=== PATIENT | male | born 1980 | race Caucasian/White ===

== ENCOUNTER 2018-10-15 14:30 | Emergency (ER) | payer MEDICAID ==
[~2018-10-15] VITALS: Ht 172.7 cm; Wt 63.5 kg
[2018-10-15 14:33] VITALS: BP 123/74
== END 2018-10-15 16:51 | disposition home or self-care (01) ==
LOC: ER 14:30
DX: S70.361A Insect bite (nonvenomous), right thigh, initial encounter (principal); S30.860A Insect bite (nonvenomous) of lower back and pelvis, initial encounter; W57.XXXA Bitten or stung by nonvenomous insect and other nonvenomous arthropods, initial encounter; Y93.89 Activity, other specified; Y99.8 Other external cause status; Y92.89 Other specified places as the place of occurrence of the external cause

== ENCOUNTER 2021-01-12 13:25 | Inpatient (IN) | payer MEDICAID ==
[~2021-01-12] VITALS: Ht 175.3 cm; Wt 60.8 kg
[2021-01-12 14:12] LABS: Basophils # (auto) 0 10 ^3/uL (0-0.2); Basophils % (auto) 0.3 % (0.0-2.0); Eosinophils # (auto) 0 10 ^3/uL (0-0.8); Eosinophils % (auto) 0.2 % (0.0-7.0); Hematocrit 47.2 % (41.0-53.0); Hemoglobin 16.3 g/dL (13.5-17.5); Lymphocytes # (auto) 1.4 10 ^3/uL (0.4-5.4); Lymphocytes % (auto) 9.4 % (10.0-50.0); Mean Corpuscular Hemoglobin 31.7 pg (28.0-32.0); Mean Corpuscular Hgb Conc. 34.6 g/dL (32.0-36.0); Mean Corpuscular Volume 91.6 fL (80.0-100.0); Monocytes # (auto) 0.7 10 ^3/uL (0-1.3); Monocytes % (auto) 4.6 % (0.0-12.0); Neutrophils # (auto) 12.8 10 ^3/uL (1.6-8.6); Neutrophils % (auto) 85.5 % (37.0-80.0); Red Blood Cells 5.15 10^6/uL (4.5-5.90); Red Cell Distribution Width 12.7 % (11.8-14.3)
[2021-01-12] MEDS ORDERED: LIDOCAINE 1% HCL (LOCAL ANESTH.) INJ 20ML MDV ONE (14:12)
[2021-01-12] MEDS ORDERED: MORPHINE SULFATE 4 MG/ML SYR/VIAL ONE (14:14)
[2021-01-12] MEDS ORDERED: ONDANSETRON HCL 4 MG/2 ML VIAL ONE (14:14)
[2021-01-12 14:20] LABS: INR 1.04 (0.9-1.15); Partial Thromboplastin Time 32.5 sec (23.6-33.0)
[2021-01-12 14:30] LABS: Albumin 4.6 g/dL (3.4-5.0); Anion Gap 6 (5-15); Blood Urea Nitrogen 18 mg/dL (7-18); Calcium 9.5 mg/dL (8.5-10.1); Carbon Dioxide 25 mmol/L (21-32); Chloride 107 mmol/L (98-107); Glucose 120 mg/dL (74-106); Potassium 3.8 mmol/L (3.5-5.1); Sodium 138 mmol/L (136-145)
[2021-01-12 14:35] LABS: Alanine Aminotransferase 35 U/L (16-61); Alkaline Phosphatase 70 U/L (45-117); Aspartate Aminotransferase 20 U/L (15-37); BUN/Creatinine Ratio 14.6; Bilirubin, Total 0.4 mg/dL (0.2-1.0); GFR African American 83 mL/min; GFR Non-African American 69 mL/min; Total Protein 8.3 g/dL (6.4-8.2)
[2021-01-12 15:37] LABS: Albumin 4.1 g/dL (3.4-5.0); Bilirubin, Direct 0.1 mg/dL (0-0.2)
[2021-01-12 15:40] LABS: Bilirubin, Total 0.3 mg/dL (0.2-1.0); Total Protein 7.1 g/dL (6.4-8.2)
[2021-01-12] MEDS ORDERED: ACETAMINOPHEN 500 MG TAB PO PRN (17:30)
[2021-01-12] MEDS ORDERED: LABETALOL HCL 5 MG/ML 4ML SYRINGE IV PRN (17:30)
[2021-01-12] MEDS ORDERED: MORPHINE SULFATE INJECTION 2 MG/ML SYRG IV PRN (17:30)
[2021-01-12] MEDS ORDERED: ONDANSETRON HCL 4 MG/2 ML VIAL IV PRN (17:30)
[2021-01-12] MEDS ORDERED: DOCUSATE CALCIUM 240 MG CAP PO PRN (17:30)
[2021-01-12] MEDS ORDERED: LORazepam 0.5 MG TAB PO PRN (17:30)
[2021-01-12] MEDS ORDERED: NITROGLYCERIN 0.4 MG SL TAB SL PRN (17:30)
[2021-01-12] MEDS: MORPHINE SULFATE 4 MG/ML SYR/VIAL IV PRN (21:13)
[2021-01-13] MEDS: MORPHINE SULFATE 4 MG/ML SYR/VIAL IV PRN ×5 (00:35→20:32)
[2021-01-13] MEDS ORDERED: TIZA4TAB9 PO (01:45)
[2021-01-13] MEDS ORDERED: HYDR1TAB97 PO (01:45)
[2021-01-13 05:30] VITALS: BP 127/82
[2021-01-13 08:00] VITALS: BP 122/81
[2021-01-13] MEDS: PANTOPRAZOLE 40 MG TAB PO SCH (08:37)
[2021-01-13] MEDS: ENOXAPARIN SOD 40 MG/0.4 ML SYRINGE SC SCH (08:38)
[2021-01-13 09:00] VITALS: BP 122/81
[2021-01-13 10:10] LABS: Basophils # (auto) 0 10 ^3/uL (0-0.2); Basophils % (auto) 0.5 % (0.0-2.0); Eosinophils # (auto) 0.1 10 ^3/uL (0-0.8); Eosinophils % (auto) 1.1 % (0.0-7.0); Hematocrit 46.7 % (41.0-53.0); Hemoglobin 16.1 g/dL (13.5-17.5); Lymphocytes % (auto) 22.6 % (10.0-50.0); Mean Corpuscular Hemoglobin 31.7 pg (28.0-32.0); Mean Corpuscular Hgb Conc. 34.4 g/dL (32.0-36.0); Monocytes # (auto) 0.7 10 ^3/uL (0-1.3); Monocytes % (auto) 7.5 % (0.0-12.0); Neutrophils # (auto) 6.1 10 ^3/uL (1.6-8.6); Neutrophils % (auto) 68.3 % (37.0-80.0); Red Blood Cells 5.08 10^6/uL (4.5-5.90); Red Cell Distribution Width 12.5 % (11.8-14.3); White Blood Cell 8.9 10^3/uL (4.4-10.8)
[2021-01-13 10:33] LABS: Albumin 3.9 g/dL (3.4-5.0); Calcium 9.1 mg/dL (8.5-10.1); Potassium 4.1 mmol/L (3.5-5.1)
[2021-01-13 10:37] LABS: BUN/Creatinine Ratio 10.2; Bilirubin, Total 0.5 mg/dL (0.2-1.0); Total Protein 7.5 g/dL (6.4-8.2)
[2021-01-13 11:27] LABS: Urine WBC None Seen /hpf (0 - 3)
[2021-01-13 11:54] LABS: Urine Bacteria NONE SEEN /hpf (None Seen); Urine Blood Negative /uL (Negative); Urine Specific Gravity 1.011 (1.001-1.035)
[2021-01-13 13:00] VITALS: BP 128/81
[2021-01-13 16:35] VITALS: BP 108/80
[2021-01-13] MEDS: IPRATROPIUM BROM 0.5 MG/2.5ML INH SOL NEB SCH ×2 (18:00→20:38)
[2021-01-13] MEDS: ALBUTEROL SULF 2.5 MG/0.5ML(0.5%) NEB SOLN NEB SCH ×2 (18:00→20:38)
[2021-01-13 22:00] VITALS: BP 123/77
[2021-01-14] MEDS: MORPHINE SULFATE 4 MG/ML SYR/VIAL IV PRN ×3 (00:05→08:04)
[2021-01-14 05:00] VITALS: BP 147/77
[2021-01-14] MEDS: ALBUTEROL SULF 2.5 MG/0.5ML(0.5%) NEB SOLN NEB SCH ×2 (06:55→12:00)
[2021-01-14] MEDS: IPRATROPIUM BROM 0.5 MG/2.5ML INH SOL NEB SCH ×2 (06:55→12:00)
[2021-01-14] MEDS: PANTOPRAZOLE 40 MG TAB PO SCH (08:04)
[2021-01-14] MEDS: ENOXAPARIN SOD 40 MG/0.4 ML SYRINGE SC SCH (08:04)
[2021-01-14 09:00] VITALS: BP 122/71
[2021-01-14 12:34] VITALS: BP 129/75
[2021-01-14 16:36] VITALS: BP 112/74
[2021-01-15] MEDS ORDERED: MORPHINE SULFATE 4 MG/ML SYR/VIAL IV ONE (18:45)
== END 2021-01-14 15:39 | disposition home or self-care (01) | DRG 140 ==
LOC: ER 13:25 → OVERFLOW 17:25 → CENTRAL 23:07
PROVIDERS: ADMIT Family Medicine; ATTEND Internal Medicine
PROC: 0W9930Z Drainage of Right Pleural Cavity with Drainage Device, Percutaneous Approach (ICD-10-PCS; principal; 2021-01-12)
DX: J43.9 Emphysema, unspecified (principal); J93.12 Secondary spontaneous pneumothorax; U07.0 Vaping-related disorder; F12.90 Cannabis use, unspecified, uncomplicated; F41.9 Anxiety disorder, unspecified; M06.9 Rheumatoid arthritis, unspecified; R91.1 Solitary pulmonary nodule; F17.210 Nicotine dependence, cigarettes, uncomplicated; J98.11 Atelectasis; M19.90 Unspecified osteoarthritis, unspecified site; Z20.822 Contact with and (suspected) exposure to COVID-19
CPT/HCPCS: 32551; 36415; 71045; 71250; 80053; 80076; 81001; 84443; 84484; 85025; 85610; 85652; 85730; 86431; 86703; 87426; 93005; G0378; J2001; J2405

== ENCOUNTER 2021-01-15 20:50 | Inpatient (IN) | payer MEDICAID ==
[~2021-01-15] VITALS: Ht 175.3 cm; Wt 55.6 kg
[~2021-01-15 20:50] MED LIST: HYDR1TAB97 PO; TIZA4TAB9 PO
[2021-01-15] MEDS ORDERED: KETAMINE 50mg/ML 10ml Vial (500mg/10ml) IV ONE (23:00)
[2021-01-15 23:08] LABS: Basophils # (auto) 0.1 10 ^3/uL (0-0.2); Basophils % (auto) 0.5 % (0.0-2.0); Eosinophils # (auto) 0.1 10 ^3/uL (0-0.8); Eosinophils % (auto) 0.6 % (0.0-7.0); Hematocrit 46.2 % (41.0-53.0); Hemoglobin 15.6 g/dL (13.5-17.5); Lymphocytes # (auto) 2.6 10 ^3/uL (0.4-5.4); Lymphocytes % (auto) 18.9 % (10.0-50.0); Mean Corpuscular Hgb Conc. 33.7 g/dL (32.0-36.0); Mean Corpuscular Volume 92.1 fL (80.0-100.0); Monocytes # (auto) 0.8 10 ^3/uL (0-1.3); Monocytes % (auto) 5.8 % (0.0-12.0); Neutrophils # (auto) 10.1 10 ^3/uL (1.6-8.6); Neutrophils % (auto) 74.2 % (37.0-80.0); Nucleated Red Blood Cells % 0.1 %; Red Blood Cells 5.02 10^6/uL (4.5-5.90); Red Cell Distribution Width 12.4 % (11.8-14.3); White Blood Cell 13.6 10^3/uL (4.4-10.8)
[2021-01-15 23:21] LABS: INR 1.08 (0.9-1.15)
[2021-01-15 23:26] LABS: Albumin 4.1 g/dL (3.4-5.0); Calcium 9.7 mg/dL (8.5-10.1); Potassium 4.1 mmol/L (3.5-5.1)
[2021-01-15 23:28] LABS: BUN/Creatinine Ratio 16.4
[2021-01-15 23:30] LABS: Bilirubin, Total 0.5 mg/dL (0.2-1.0); Total Protein 7.9 g/dL (6.4-8.2)
[2021-01-16] MEDS ORDERED: ALBUTEROL SULF 2.5 MG/0.5ML(0.5%) NEB SOLN NEB PRN (00:45)
[2021-01-16] MEDS ORDERED: MORPHINE SULFATE INJECTION 2 MG/ML SYRG IV PRN (00:45)
[2021-01-16] MEDS ORDERED: NITROGLYCERIN 0.4 MG SL TAB SL PRN (00:45)
[2021-01-16] MEDS ORDERED: ACETAMINOPHEN 325 MG TAB PO PRN (00:45)
[2021-01-16] MEDS: MORPHINE SULFATE 4 MG/ML SYR/VIAL IV PRN ×4 (01:39→22:03)
[2021-01-16] MEDS: ONDANSETRON HCL 4 MG/2 ML VIAL IV PRN (01:39)
[2021-01-16] MEDS: HYDROcodone-ACET 5/325MG TAB PO PRN (06:04)
[2021-01-16] MEDS: PANTOPRAZOLE 40 MG TAB PO SCH (11:34)
[2021-01-16] MEDS: ENOXAPARIN SOD 40 MG/0.4 ML SYRINGE SC SCH (11:35)
[2021-01-16 21:53] VITALS: BP 119/81
[2021-01-17] MEDS: MORPHINE SULFATE 4 MG/ML SYR/VIAL IV PRN ×4 (04:03→22:24)
[2021-01-17 05:11] LABS: Basophils # (auto) 0 10 ^3/uL (0-0.2); Basophils % (auto) 0.3 % (0.0-2.0); Eosinophils # (auto) 0.2 10 ^3/uL (0-0.8); Eosinophils % (auto) 2.9 % (0.0-7.0); Hematocrit 43.2 % (41.0-53.0); Hemoglobin 14.7 g/dL (13.5-17.5); Lymphocytes # (auto) 1.3 10 ^3/uL (0.4-5.4); Lymphocytes % (auto) 20.5 % (10.0-50.0); Mean Corpuscular Hemoglobin 31.5 pg (28.0-32.0); Mean Corpuscular Volume 92.8 fL (80.0-100.0); Monocytes # (auto) 0.7 10 ^3/uL (0-1.3); Monocytes % (auto) 10.1 % (0.0-12.0); Neutrophils # (auto) 4.3 10 ^3/uL (1.6-8.6); Neutrophils % (auto) 66.2 % (37.0-80.0); Nucleated Red Blood Cells % 0.1 %; Red Blood Cells 4.65 10^6/uL (4.5-5.90); Red Cell Distribution Width 12.5 % (11.8-14.3); White Blood Cell 6.5 10^3/uL (4.4-10.8)
[2021-01-17 05:30] LABS: Calcium 8.7 mg/dL (8.5-10.1); Potassium 4.4 mmol/L (3.5-5.1)
[2021-01-17 05:43] VITALS: BP 110/66
[2021-01-17 09:00] VITALS: BP 126/72
[2021-01-17] MEDS: PANTOPRAZOLE 40 MG TAB PO SCH (10:17)
[2021-01-17] MEDS: ENOXAPARIN SOD 40 MG/0.4 ML SYRINGE SC SCH (10:17)
[2021-01-17] MEDS: ONDANSETRON HCL 4 MG/2 ML VIAL IV PRN ×3 (10:18→22:24)
[2021-01-17] MEDS: DOCUSATE SOD 100 MG CAP PO SCH ×2 (10:21→22:24)
[2021-01-17] MEDS: HYDROcodone-ACET 5/325MG TAB PO PRN (11:44)
[2021-01-17] MEDS: NICOTINE 21MG/24 HR TOPICAL PATCH TD SCH (12:15)
[2021-01-17 13:00] VITALS: BP 122/86
[2021-01-17 17:00] VITALS: BP 117/68
[2021-01-17 22:13] VITALS: BP 120/73
[2021-01-18] MEDS: ONDANSETRON HCL 4 MG/2 ML VIAL IV PRN ×4 (04:28→22:44)
[2021-01-18] MEDS: MORPHINE SULFATE 4 MG/ML SYR/VIAL IV PRN ×4 (04:28→22:44)
[2021-01-18 05:22] VITALS: BP 127/81
[2021-01-18 09:00] VITALS: BP 149/84
[2021-01-18] MEDS: DOCUSATE SOD 100 MG CAP PO SCH ×2 (09:56→21:49)
[2021-01-18] MEDS: NICOTINE 21MG/24 HR TOPICAL PATCH TD SCH (09:57)
[2021-01-18] MEDS: PANTOPRAZOLE 40 MG TAB PO SCH (09:57)
[2021-01-18] MEDS: ENOXAPARIN SOD 40 MG/0.4 ML SYRINGE SC SCH (09:57)
[2021-01-18 17:00] VITALS: BP 148/70
[2021-01-18 22:19] VITALS: BP 114/56
[2021-01-19] MEDS: ONDANSETRON HCL 4 MG/2 ML VIAL IV PRN ×4 (04:36→22:32)
[2021-01-19] MEDS: MORPHINE SULFATE 4 MG/ML SYR/VIAL IV PRN ×4 (04:38→22:33)
[2021-01-19 05:00] VITALS: BP 136/75
[2021-01-19 08:00] VITALS: BP 118/64
[2021-01-19 09:00] VITALS: BP 151/72
[2021-01-19] MEDS: PANTOPRAZOLE 40 MG TAB PO SCH (09:25)
[2021-01-19] MEDS: NICOTINE 21MG/24 HR TOPICAL PATCH TD SCH (09:27)
[2021-01-19] MEDS: ENOXAPARIN SOD 40 MG/0.4 ML SYRINGE SC SCH (09:28)
[2021-01-19] MEDS: DOCUSATE SOD 100 MG CAP PO SCH (09:28)
[2021-01-19 14:57] VITALS: BP 121/70
[2021-01-19] MEDS ORDERED: LACTULOSE 20Gm/30ML SOLN PO PRN (15:30)
[2021-01-19] MEDS ORDERED: LACTULOSE 20Gm/30ML SOLN PO ONE (15:30)
[2021-01-19] MEDS: HYDROcodone-ACET 5/325MG TAB PO PRN (15:46)
[2021-01-19 20:00] VITALS: BP 124/70
[2021-01-19 22:00] VITALS: BP 124/70
[2021-01-20] MEDS: LACTULOSE 20Gm/30ML SOLN PO PRN ×2 (00:46→17:34)
[2021-01-20] MEDS: ONDANSETRON HCL 4 MG/2 ML VIAL IV PRN ×4 (04:42→23:12)
[2021-01-20] MEDS: MORPHINE SULFATE 4 MG/ML SYR/VIAL IV PRN ×4 (04:42→23:12)
[2021-01-20 05:00] VITALS: BP 123/69
[2021-01-20 08:42] VITALS: BP 113/68
[2021-01-20] MEDS: PANTOPRAZOLE 40 MG TAB PO SCH (09:03)
[2021-01-20] MEDS: ENOXAPARIN SOD 40 MG/0.4 ML SYRINGE SC SCH (09:04)
[2021-01-20] MEDS: NICOTINE 21MG/24 HR TOPICAL PATCH TD SCH (09:04)
[2021-01-20 12:30] VITALS: BP 127/82
[2021-01-20] MEDS: HYDROcodone-ACET 5/325MG TAB PO PRN ×2 (14:01→19:49)
[2021-01-20 16:44] VITALS: BP 105/67
[2021-01-20 22:00] VITALS: BP 109/70
[2021-01-21 05:00] VITALS: BP 115/66
[2021-01-21] MEDS: ONDANSETRON HCL 4 MG/2 ML VIAL IV PRN ×3 (05:18→17:55)
[2021-01-21] MEDS: MORPHINE SULFATE 4 MG/ML SYR/VIAL IV PRN ×3 (05:19→18:00)
[2021-01-21 09:00] VITALS: BP 113/73
[2021-01-21] MEDS: ENOXAPARIN SOD 40 MG/0.4 ML SYRINGE SC SCH (12:00)
[2021-01-21] MEDS: PANTOPRAZOLE 40 MG TAB PO SCH (12:00)
[2021-01-21] MEDS: NICOTINE 21MG/24 HR TOPICAL PATCH TD SCH (12:00)
[2021-01-21 13:00] VITALS: BP 119/59
[2021-01-21] MEDS: HYDROcodone-ACET 5/325MG TAB PO PRN ×2 (15:30→19:48)
[2021-01-21] MEDS: LACTULOSE 20Gm/30ML SOLN PO PRN (15:30)
[2021-01-21 16:50] VITALS: BP 115/74
[2021-01-21 22:17] VITALS: BP 118/73
[2021-01-22] MEDS: MORPHINE SULFATE 4 MG/ML SYR/VIAL IV PRN ×4 (00:07→19:35)
[2021-01-22] MEDS: ONDANSETRON HCL 4 MG/2 ML VIAL IV PRN ×4 (00:07→19:35)
[2021-01-22 05:10] VITALS: BP 105/64
[2021-01-22 05:39] LABS: Basophils # (auto) 0.1 10 ^3/uL (0-0.2); Basophils % (auto) 0.8 % (0.0-2.0); Eosinophils # (auto) 0.4 10 ^3/uL (0-0.8); Eosinophils % (auto) 4.9 % (0.0-7.0); Hematocrit 42.3 % (41.0-53.0); Hemoglobin 14.5 g/dL (13.5-17.5); Lymphocytes # (auto) 1.9 10 ^3/uL (0.4-5.4); Lymphocytes % (auto) 26.7 % (10.0-50.0); Mean Corpuscular Hemoglobin 31.3 pg (28.0-32.0); Mean Corpuscular Hgb Conc. 34.2 g/dL (32.0-36.0); Mean Corpuscular Volume 91.3 fL (80.0-100.0); Monocytes # (auto) 0.7 10 ^3/uL (0-1.3); Monocytes % (auto) 9.8 % (0.0-12.0); Neutrophils # (auto) 4.2 10 ^3/uL (1.6-8.6); Neutrophils % (auto) 57.8 % (37.0-80.0); Red Blood Cells 4.63 10^6/uL (4.5-5.90); Red Cell Distribution Width 12.1 % (11.8-14.3); White Blood Cell 7.3 10^3/uL (4.4-10.8)
[2021-01-22 05:48] LABS: Albumin 3.1 g/dL (3.4-5.0); Calcium 9.1 mg/dL (8.5-10.1); Potassium 4.4 mmol/L (3.5-5.1)
[2021-01-22 05:52] LABS: BUN/Creatinine Ratio 15.1; Bilirubin, Total 0.4 mg/dL (0.2-1.0); Total Protein 6.9 g/dL (6.4-8.2)
[2021-01-22 09:00] VITALS: BP 132/72
[2021-01-22] MEDS: ENOXAPARIN SOD 40 MG/0.4 ML SYRINGE SC SCH (10:00)
[2021-01-22] MEDS: PANTOPRAZOLE 40 MG TAB PO SCH (12:30)
[2021-01-22] MEDS: NICOTINE 21MG/24 HR TOPICAL PATCH TD SCH (12:30)
[2021-01-22 13:00] VITALS: BP 113/71
[2021-01-22 15:23] LABS: INR 1.05 (0.9-1.15); Partial Thromboplastin Time 33.4 sec (23.6-33.0)
[2021-01-22] MEDS: HYDROcodone-ACET 5/325MG TAB PO PRN ×2 (16:00→21:47)
[2021-01-22 18:00] VITALS: BP 136/81
[2021-01-22 22:00] VITALS: BP 114/66
[2021-01-23] MEDS: MORPHINE SULFATE 4 MG/ML SYR/VIAL IV PRN ×3 (01:52→17:09)
[2021-01-23] MEDS: ONDANSETRON HCL 4 MG/2 ML VIAL IV PRN (01:52)
[2021-01-23 05:00] VITALS: BP 123/72
[2021-01-23 05:42] LABS: Basophils # (auto) 0 10 ^3/uL (0-0.2); Basophils % (auto) 0.4 % (0.0-2.0); Eosinophils # (auto) 0.3 10 ^3/uL (0-0.8); Eosinophils % (auto) 3.3 % (0.0-7.0); Hematocrit 40.3 % (41.0-53.0); Hemoglobin 13.8 g/dL (13.5-17.5); Lymphocytes % (auto) 25.1 % (10.0-50.0); Mean Corpuscular Hemoglobin 31.3 pg (28.0-32.0); Mean Corpuscular Hgb Conc. 34.3 g/dL (32.0-36.0); Mean Corpuscular Volume 91.3 fL (80.0-100.0); Monocytes # (auto) 0.7 10 ^3/uL (0-1.3); Monocytes % (auto) 8.6 % (0.0-12.0); Neutrophils % (auto) 62.6 % (37.0-80.0); Red Blood Cells 4.41 10^6/uL (4.5-5.90); Red Cell Distribution Width 12.1 % (11.8-14.3)
[2021-01-23 05:51] LABS: Potassium 4.3 mmol/L (3.5-5.1)
[2021-01-23 05:54] LABS: BUN/Creatinine Ratio 15.4
[2021-01-23 08:00] VITALS: BP 121/71
[2021-01-23] MEDS: PANTOPRAZOLE 40 MG TAB PO SCH (10:00)
[2021-01-23] MEDS: NICOTINE 21MG/24 HR TOPICAL PATCH TD SCH (10:20)
[2021-01-23] MEDS: ENOXAPARIN SOD 40 MG/0.4 ML SYRINGE SC SCH (10:20)
[2021-01-23 13:03] VITALS: BP 114/75
[2021-01-23] MEDS: HYDROcodone-ACET 5/325MG TAB PO PRN ×2 (13:39→19:58)
[2021-01-23] MEDS: LACTULOSE 20Gm/30ML SOLN PO PRN ×2 (13:39→19:58)
[2021-01-23 17:00] VITALS: BP 123/73
[2021-01-23] MEDS: TEMAZEPAM 15 MG CAP PO PRN (19:58)
[2021-01-23 22:00] VITALS: BP 105/63
[2021-01-24] MEDS: MORPHINE SULFATE 4 MG/ML SYR/VIAL IV PRN ×3 (01:05→15:31)
[2021-01-24 05:00] VITALS: BP 119/69
[2021-01-24] MEDS ORDERED: fentaNYL CITRATE 100 MCG/2 ML VL ONE (08:11)
[2021-01-24] MEDS ORDERED: MIDAZOLAM HCL 2MG/2ML 2ml VIAL (1mg/ml) ONE (08:11)
[2021-01-24] MEDS ORDERED: fentaNYL CITRATE 5 ML ONE (08:11)
[2021-01-24] MEDS ORDERED: GLYCOPYRROLATE 0.2 MG/ML 1ML VIAL ONE (08:12)
[2021-01-24] MEDS ORDERED: ONDANSETRON HCL 4 MG/2 ML VIAL ONE (08:12)
[2021-01-24] MEDS ORDERED: SODIUM CHLORIDE LOCK 50 ML ONE (08:12)
[2021-01-24] MEDS ORDERED: PROPOFOL 10 MG/ML 20 ML IV ONE (08:12)
[2021-01-24] MEDS ORDERED: NEOSTIGMINE 1 MG/ML INJ (10mg/10ML VIAL) ONE (08:12)
[2021-01-24] MEDS ORDERED: MORPHINE SULFATE 4 MG/ML SYR/VIAL ONE (08:30)
[2021-01-24] MEDS: NICOTINE 21MG/24 HR TOPICAL PATCH TD SCH (08:33)
[2021-01-24] MEDS: ENOXAPARIN SOD 40 MG/0.4 ML SYRINGE SC SCH (08:33)
[2021-01-24] MEDS: PANTOPRAZOLE 40 MG TAB PO SCH (08:33)
[2021-01-24] MEDS ORDERED: POVIDONE IODINE 10 % TOPICAL OINT 30GM TOP ONE (08:49)
[2021-01-24] MEDS ORDERED: ROCURONIUM 10MG/ML 10ML VIAL IV ONE (08:56)
[2021-01-24 09:00] VITALS: BP 127/70
[2021-01-24] MEDS ORDERED: ceFAZolin 1GM/50ML 100 ML IV ONE (09:43)
[2021-01-24] MEDS ORDERED: MEPERIDINE HCL (25 MG/ML) 1ML VIAL ONE (12:27)
[2021-01-24] MEDS ORDERED: MORPHINE SULFATE 4 MG/ML SYR/VIAL IV PRN (12:45)
[2021-01-24] MEDS ORDERED: HYDROmorphone HCL 2 MG/ML VL IV PRN (12:45)
[2021-01-24] MEDS ORDERED: METOCLOPRAMIDE HCL 5MG/ml INJ 2ml VIAL IV PRN (12:45)
[2021-01-24] MEDS: HYDROcodone-ACET 5/325MG TAB PO PRN ×2 (14:30→18:30)
[2021-01-24] MEDS: MORPHINE SULFATE INJECTION 2 MG/ML SYRG IV PRN (20:04)
[2021-01-24] MEDS: TEMAZEPAM 15 MG CAP PO PRN (20:04)
[2021-01-24 22:00] VITALS: BP 144/79
[2021-01-25] MEDS: MORPHINE SULFATE INJECTION 2 MG/ML SYRG IV PRN ×6 (00:54→21:38)
[2021-01-25] MEDS: HYDROcodone-ACET 5/325MG TAB PO PRN ×4 (03:52→19:36)
[2021-01-25 09:00] VITALS: BP 129/61
[2021-01-25] MEDS: ENOXAPARIN SOD 40 MG/0.4 ML SYRINGE SC SCH (09:20)
[2021-01-25] MEDS: PANTOPRAZOLE 40 MG TAB PO SCH (09:20)
[2021-01-25] MEDS: NICOTINE 21MG/24 HR TOPICAL PATCH TD SCH (09:20)
[2021-01-25 10:39] VITALS: BP 129/61
[2021-01-25 13:00] VITALS: BP 158/69
[2021-01-25] MEDS: ALBUTEROL SULF 2.5 MG/0.5ML(0.5%) NEB SOLN NEB SCH ×2 (13:35→19:44)
[2021-01-25] MEDS: IPRATROPIUM BROM 0.5 MG/2.5ML INH SOL NEB SCH ×2 (13:35→19:44)
[2021-01-25 15:00] VITALS: BP 134/64
[2021-01-25 22:00] VITALS: BP 134/66
[2021-01-25] MEDS: TEMAZEPAM 15 MG CAP PO PRN (23:05)
[2021-01-26] MEDS: IPRATROPIUM BROM 0.5 MG/2.5ML INH SOL NEB SCH ×5 (00:23→19:38)
[2021-01-26] MEDS: ALBUTEROL SULF 2.5 MG/0.5ML(0.5%) NEB SOLN NEB SCH ×5 (00:23→19:38)
[2021-01-26] MEDS: HYDROcodone-ACET 5/325MG TAB PO PRN ×4 (00:52→19:30)
[2021-01-26] MEDS: MORPHINE SULFATE INJECTION 2 MG/ML SYRG IV PRN ×5 (03:14→21:40)
[2021-01-26 05:00] VITALS: BP 143/74
[2021-01-26 09:00] VITALS: BP 133/70
[2021-01-26] MEDS: ENOXAPARIN SOD 40 MG/0.4 ML SYRINGE SC SCH (09:21)
[2021-01-26] MEDS: PANTOPRAZOLE 40 MG TAB PO SCH (09:21)
[2021-01-26] MEDS: NICOTINE 21MG/24 HR TOPICAL PATCH TD SCH (09:24)
[2021-01-26 13:00] VITALS: BP 138/73
[2021-01-26 17:00] VITALS: BP 144/69
[2021-01-26 22:00] VITALS: BP 144/63
[2021-01-26] MEDS: TEMAZEPAM 15 MG CAP PO PRN (23:47)
[2021-01-27] MEDS: MORPHINE SULFATE INJECTION 2 MG/ML SYRG IV PRN ×5 (02:48→20:00)
[2021-01-27 05:00] VITALS: BP 143/78
[2021-01-27] MEDS: IPRATROPIUM BROM 0.5 MG/2.5ML INH SOL NEB SCH ×3 (06:51→18:47)
[2021-01-27] MEDS: ALBUTEROL SULF 2.5 MG/0.5ML(0.5%) NEB SOLN NEB SCH ×3 (06:51→18:47)
[2021-01-27 09:00] VITALS: BP 150/74
[2021-01-27] MEDS: PANTOPRAZOLE 40 MG TAB PO SCH (09:20)
[2021-01-27] MEDS: HYDROcodone-ACET 5/325MG TAB PO PRN (09:21)
[2021-01-27] MEDS: NICOTINE 21MG/24 HR TOPICAL PATCH TD SCH (09:21)
[2021-01-27] MEDS: ENOXAPARIN SOD 40 MG/0.4 ML SYRINGE SC SCH (09:23)
[2021-01-27] MEDS: LACTULOSE 20Gm/30ML SOLN PO PRN (11:37)
[2021-01-27 13:00] VITALS: BP 125/78
[2021-01-27 17:14] VITALS: BP 126/76
[2021-01-27] MEDS: TEMAZEPAM 15 MG CAP PO PRN (21:15)
[2021-01-27 22:00] VITALS: BP 117/65
[2021-01-28] MEDS: MORPHINE SULFATE INJECTION 2 MG/ML SYRG IV PRN ×5 (01:15→20:15)
[2021-01-28 05:00] VITALS: BP 119/82
[2021-01-28] MEDS: IPRATROPIUM BROM 0.5 MG/2.5ML INH SOL NEB SCH ×5 (06:47→22:13)
[2021-01-28] MEDS: ALBUTEROL SULF 2.5 MG/0.5ML(0.5%) NEB SOLN NEB SCH ×5 (06:47→22:13)
[2021-01-28 09:00] VITALS: BP 146/81
[2021-01-28] MEDS: PANTOPRAZOLE 40 MG TAB PO SCH (09:11)
[2021-01-28] MEDS: ENOXAPARIN SOD 40 MG/0.4 ML SYRINGE SC SCH (09:11)
[2021-01-28] MEDS: NICOTINE 21MG/24 HR TOPICAL PATCH TD SCH (09:11)
[2021-01-28] MEDS: LACTULOSE 20Gm/30ML SOLN PO PRN ×2 (09:12→21:56)
[2021-01-28] MEDS: levoFLOXacin 750MG 150 ML IV SCH (11:31)
[2021-01-28 12:45] VITALS: BP 119/64
[2021-01-28] MEDS ORDERED: SENNA 8.6 MG TAB PO ONE (15:15)
[2021-01-28 17:00] VITALS: BP 126/59
[2021-01-28 21:20] VITALS: BP 126/59
[2021-01-28 22:00] VITALS: BP 130/60
[2021-01-29 05:00] VITALS: BP 144/73
[2021-01-29] MEDS: HYDROcodone-ACET 5/325MG TAB PO PRN ×5 (05:00→18:05)
[2021-01-29 05:57] LABS: Basophils # (auto) 0 10 ^3/uL (0-0.2); Basophils % (auto) 0.2 % (0.0-2.0); Eosinophils # (auto) 0 10 ^3/uL (0-0.8); Eosinophils % (auto) 0.1 % (0.0-7.0); Hematocrit 34.6 % (41.0-53.0); Hemoglobin 11.7 g/dL (13.5-17.5); Lymphocytes % (auto) 5.7 % (10.0-50.0); Mean Corpuscular Hemoglobin 30.8 pg (28.0-32.0); Mean Corpuscular Volume 90.8 fL (80.0-100.0); Monocytes # (auto) 1.7 10 ^3/uL (0-1.3); Monocytes % (auto) 9.4 % (0.0-12.0); Neutrophils # (auto) 15.1 10 ^3/uL (1.6-8.6); Neutrophils % (auto) 84.6 % (37.0-80.0); Nucleated Red Blood Cells % 0.1 %; Red Blood Cells 3.81 10^6/uL (4.5-5.90); Red Cell Distribution Width 12.3 % (11.8-14.3); White Blood Cell 17.9 10^3/uL (4.4-10.8)
[2021-01-29 06:13] LABS: Calcium 8.8 mg/dL (8.5-10.1); Potassium 3.9 mmol/L (3.5-5.1)
[2021-01-29 06:16] LABS: BUN/Creatinine Ratio 14.9
[2021-01-29] MEDS: IPRATROPIUM BROM 0.5 MG/2.5ML INH SOL NEB SCH ×4 (06:28→21:53)
[2021-01-29] MEDS: ALBUTEROL SULF 2.5 MG/0.5ML(0.5%) NEB SOLN NEB SCH ×4 (06:28→21:53)
[2021-01-29 08:45] VITALS: BP 154/72
[2021-01-29] MEDS: levoFLOXacin 750MG 150 ML IV SCH (09:06)
[2021-01-29] MEDS: PANTOPRAZOLE 40 MG TAB PO SCH (09:06)
[2021-01-29] MEDS: ENOXAPARIN SOD 40 MG/0.4 ML SYRINGE SC SCH (09:07)
[2021-01-29] MEDS: NICOTINE 21MG/24 HR TOPICAL PATCH TD SCH (09:08)
[2021-01-29 12:45] VITALS: BP 114/84
[2021-01-29 16:45] VITALS: BP 117/69
[2021-01-29] MEDS: LACTULOSE 20Gm/30ML SOLN PO PRN (21:40)
[2021-01-29 22:00] VITALS: BP 119/76
[2021-01-30] MEDS: TEMAZEPAM 15 MG CAP PO PRN ×2 (00:13→22:08)
[2021-01-30 05:00] VITALS: BP 116/70
[2021-01-30] MEDS: ALBUTEROL SULF 2.5 MG/0.5ML(0.5%) NEB SOLN NEB SCH ×3 (06:06→18:31)
[2021-01-30] MEDS: IPRATROPIUM BROM 0.5 MG/2.5ML INH SOL NEB SCH ×3 (06:06→18:31)
[2021-01-30] MEDS: HYDROcodone-ACET 5/325MG TAB PO PRN ×4 (06:21→19:35)
[2021-01-30 08:59] VITALS: BP 107/78
[2021-01-30] MEDS: PANTOPRAZOLE 40 MG TAB PO SCH (10:10)
[2021-01-30] MEDS: levoFLOXacin 750MG 150 ML IV SCH (10:10)
[2021-01-30] MEDS: NICOTINE 21MG/24 HR TOPICAL PATCH TD SCH (10:11)
[2021-01-30] MEDS: ENOXAPARIN SOD 40 MG/0.4 ML SYRINGE SC SCH (10:12)
[2021-01-30 13:00] VITALS: BP 116/76
[2021-01-30 17:00] VITALS: BP 118/77
[2021-01-30 22:00] VITALS: BP 124/65
[2021-01-31] MEDS: HYDROcodone-ACET 5/325MG TAB PO PRN ×4 (04:42→18:18)
[2021-01-31 05:00] VITALS: BP 110/71
[2021-01-31] MEDS: IPRATROPIUM BROM 0.5 MG/2.5ML INH SOL NEB SCH ×5 (06:24→20:42)
[2021-01-31] MEDS: ALBUTEROL SULF 2.5 MG/0.5ML(0.5%) NEB SOLN NEB SCH ×5 (06:24→20:42)
[2021-01-31 08:38] VITALS: BP 120/73
[2021-01-31] MEDS: PANTOPRAZOLE 40 MG TAB PO SCH (10:05)
[2021-01-31] MEDS: ENOXAPARIN SOD 40 MG/0.4 ML SYRINGE SC SCH (10:05)
[2021-01-31] MEDS: NICOTINE 21MG/24 HR TOPICAL PATCH TD SCH (10:06)
[2021-01-31] MEDS: levoFLOXacin 750MG 150 ML IV SCH (10:06)
[2021-01-31 10:40] LABS: Basophils # (auto) 0.1 10 ^3/uL (0-0.2); Basophils % (auto) 0.4 % (0.0-2.0); Eosinophils # (auto) 0.1 10 ^3/uL (0-0.8); Lymphocytes # (auto) 1.1 10 ^3/uL (0.4-5.4); Mean Corpuscular Volume 91.6 fL (80.0-100.0); Red Blood Cells 3.84 10^6/uL (4.5-5.90)
[2021-01-31 10:44] LABS: Eosinophils % (auto) 0.8 % (0.0-7.0); Hematocrit 35.2 % (41.0-53.0); Lymphocytes % (auto) 7.2 % (10.0-50.0); Mean Corpuscular Hemoglobin 31.1 pg (28.0-32.0); Monocytes # (auto) 1.3 10 ^3/uL (0-1.3); Monocytes % (auto) 8.5 % (0.0-12.0); Neutrophils # (auto) 12.5 10 ^3/uL (1.6-8.6); Neutrophils % (auto) 83.1 % (37.0-80.0); Nucleated Red Blood Cells % 0.1 %; Red Cell Distribution Width 12.4 % (11.8-14.3)
[2021-01-31 11:04] LABS: BUN/Creatinine Ratio 11.4; Calcium 8.9 mg/dL (8.5-10.1); Potassium 4.2 mmol/L (3.5-5.1)
[2021-01-31 12:25] VITALS: BP 112/68
[2021-01-31 17:28] VITALS: BP 118/77
[2021-01-31 22:00] VITALS: BP 123/66
[2021-01-31] MEDS: TEMAZEPAM 15 MG CAP PO PRN (22:18)
[2021-02-01] MEDS: HYDROcodone-ACET 5/325MG TAB PO PRN ×5 (01:58→20:08)
[2021-02-01 04:45] VITALS: BP 119/70
[2021-02-01] MEDS: IPRATROPIUM BROM 0.5 MG/2.5ML INH SOL NEB SCH ×4 (06:08→18:31)
[2021-02-01] MEDS: ALBUTEROL SULF 2.5 MG/0.5ML(0.5%) NEB SOLN NEB SCH ×4 (06:08→18:31)
[2021-02-01 09:00] VITALS: BP 133/80
[2021-02-01] MEDS: ENOXAPARIN SOD 40 MG/0.4 ML SYRINGE SC SCH (09:42)
[2021-02-01] MEDS: PANTOPRAZOLE 40 MG TAB PO SCH (09:42)
[2021-02-01] MEDS: levoFLOXacin 750MG 150 ML IV SCH (09:42)
[2021-02-01] MEDS: NICOTINE 21MG/24 HR TOPICAL PATCH TD SCH (09:43)
[2021-02-01 13:00] VITALS: BP 132/81
[2021-02-01 17:00] VITALS: BP 132/70
[2021-02-01] MEDS: LACTULOSE 20Gm/30ML SOLN PO PRN (17:36)
[2021-02-01] MEDS: TEMAZEPAM 15 MG CAP PO PRN (21:26)
[2021-02-01 22:00] VITALS: BP 105/68
[2021-02-02] VITALS (7 sets, daily range): BP systolic 118–126; BP diastolic 36–76
[2021-02-02] MEDS: HYDROcodone-ACET 5/325MG TAB PO PRN ×5 (03:03→21:07)
[2021-02-02] MEDS: ALBUTEROL SULF 2.5 MG/0.5ML(0.5%) NEB SOLN NEB SCH ×3 (06:50→17:59)
[2021-02-02] MEDS: IPRATROPIUM BROM 0.5 MG/2.5ML INH SOL NEB SCH ×3 (06:50→17:59)
[2021-02-02 08:12] LABS: Basophils # (auto) 0.1 10 ^3/uL (0-0.2); Basophils % (auto) 0.5 % (0.0-2.0); Eosinophils # (auto) 0.1 10 ^3/uL (0-0.8); Eosinophils % (auto) 1.1 % (0.0-7.0); Hematocrit 33.9 % (41.0-53.0); Hemoglobin 11.5 g/dL (13.5-17.5); Lymphocytes # (auto) 1.4 10 ^3/uL (0.4-5.4); Lymphocytes % (auto) 11.6 % (10.0-50.0); Mean Corpuscular Volume 91.4 fL (80.0-100.0); Monocytes # (auto) 1.2 10 ^3/uL (0-1.3); Monocytes % (auto) 9.7 % (0.0-12.0); Neutrophils # (auto) 9.4 10 ^3/uL (1.6-8.6); Neutrophils % (auto) 77.1 % (37.0-80.0); Nucleated Red Blood Cells % 0.1 %; Red Cell Distribution Width 12.5 % (11.8-14.3); White Blood Cell 12.2 10^3/uL (4.4-10.8)
[2021-02-02] MEDS: levoFLOXacin 750MG 150 ML IV SCH (08:22)
[2021-02-02] MEDS: PANTOPRAZOLE 40 MG TAB PO SCH (08:22)
[2021-02-02] MEDS: NICOTINE 21MG/24 HR TOPICAL PATCH TD SCH (08:24)
[2021-02-02] MEDS: ENOXAPARIN SOD 40 MG/0.4 ML SYRINGE SC SCH (08:24)
[2021-02-02] MEDS ORDERED: levoFLOXacin 250 MG TAB PO ONE (09:00)
[2021-02-02] MEDS: LACTULOSE 20Gm/30ML SOLN PO PRN (12:57)
[2021-02-02] MEDS: TEMAZEPAM 15 MG CAP PO PRN (21:07)
[2021-02-03] MEDS: HYDROcodone-ACET 5/325MG TAB PO PRN ×5 (01:54→21:48)
[2021-02-03 06:00] VITALS: BP_SYST 111; BP_SYST 125; BP_DIAS 69; BP_DIAS 85
[2021-02-03] MEDS: IPRATROPIUM BROM 0.5 MG/2.5ML INH SOL NEB SCH ×4 (06:45→18:35)
[2021-02-03] MEDS: ALBUTEROL SULF 2.5 MG/0.5ML(0.5%) NEB SOLN NEB SCH ×4 (06:46→18:35)
[2021-02-03 09:00] VITALS: BP 126/74
[2021-02-03] MEDS: NICOTINE 21MG/24 HR TOPICAL PATCH TD SCH (09:13)
[2021-02-03] MEDS: LACTULOSE 20Gm/30ML SOLN PO PRN (10:33)
[2021-02-03 13:00] VITALS: BP 132/73
[2021-02-03 17:00] VITALS: BP 131/82
[2021-02-03 21:45] VITALS: BP 109/69
[2021-02-03] MEDS: TEMAZEPAM 15 MG CAP PO PRN (21:45)
[2021-02-04] MEDS: HYDROcodone-ACET 5/325MG TAB PO PRN ×4 (02:15→20:02)
[2021-02-04 05:45] VITALS: BP 120/79
[2021-02-04] MEDS: NICOTINE 21MG/24 HR TOPICAL PATCH TD SCH (08:35)
[2021-02-04 09:00] VITALS: BP 140/77
[2021-02-04] MEDS: IPRATROPIUM BROM 0.5 MG/2.5ML INH SOL NEB SCH ×4 (11:12→19:48)
[2021-02-04] MEDS: ALBUTEROL SULF 2.5 MG/0.5ML(0.5%) NEB SOLN NEB SCH ×4 (11:12→19:48)
[2021-02-04] MEDS: THROAT LOZENGES(CEPASTAT) MT PRN (12:42)
[2021-02-04 13:00] VITALS: BP 110/64
[2021-02-04] MEDS: LACTULOSE 20Gm/30ML SOLN PO PRN (13:18)
[2021-02-04 17:00] VITALS: BP 123/73
[2021-02-04] MEDS: TEMAZEPAM 15 MG CAP PO PRN (21:39)
[2021-02-04 22:00] VITALS: BP 122/71
[2021-02-05] MEDS: IPRATROPIUM BROM 0.5 MG/2.5ML INH SOL NEB SCH ×4 (00:45→18:36)
[2021-02-05] MEDS: ALBUTEROL SULF 2.5 MG/0.5ML(0.5%) NEB SOLN NEB SCH ×4 (00:45→18:36)
[2021-02-05] MEDS: THROAT LOZENGES(CEPASTAT) MT PRN (02:12)
[2021-02-05] MEDS: HYDROcodone-ACET 5/325MG TAB PO PRN ×5 (02:12→20:09)
[2021-02-05 05:00] VITALS: BP 121/68
[2021-02-05 09:00] VITALS: BP 123/69
[2021-02-05] MEDS: NICOTINE 21MG/24 HR TOPICAL PATCH TD SCH (09:26)
[2021-02-05] MEDS: LACTULOSE 20Gm/30ML SOLN PO PRN (09:40)
[2021-02-05] MEDS ORDERED: AZITHROMYCIN 250 MG TAB PO ONE (10:30)
[2021-02-05 17:00] VITALS: BP 116/68
[2021-02-05] MEDS: TEMAZEPAM 15 MG CAP PO PRN (21:40)
[2021-02-05 22:00] VITALS: BP 117/75
[2021-02-06] MEDS: HYDROcodone-ACET 5/325MG TAB PO PRN ×6 (01:00→22:32)
[2021-02-06 01:24] VITALS: BP 117/75
[2021-02-06 05:00] VITALS: BP 110/77
[2021-02-06] MEDS: THROAT LOZENGES(CEPASTAT) MT PRN ×2 (05:23→09:26)
[2021-02-06 05:38] LABS: Eosinophils # (auto) 0.2 10 ^3/uL (0-0.8); Eosinophils % (auto) 1.8 % (0.0-7.0); Hematocrit 36.1 % (41.0-53.0); Hemoglobin 12.3 g/dL (13.5-17.5); Lymphocytes # (auto) 1.9 10 ^3/uL (0.4-5.4); Neutrophils # (auto) 6.9 10 ^3/uL (1.6-8.6); Red Blood Cells 3.98 10^6/uL (4.5-5.90)
[2021-02-06 05:42] LABS: Basophils # (auto) 0 10 ^3/uL (0-0.2); Basophils % (auto) 0.4 % (0.0-2.0); Lymphocytes % (auto) 18.8 % (10.0-50.0); Mean Corpuscular Hemoglobin 30.9 pg (28.0-32.0); Mean Corpuscular Hgb Conc. 34.1 g/dL (32.0-36.0); Mean Corpuscular Volume 90.6 fL (80.0-100.0); Monocytes % (auto) 9.9 % (0.0-12.0); Neutrophils % (auto) 69.1 % (37.0-80.0); Red Cell Distribution Width 12.8 % (11.8-14.3)
[2021-02-06 05:57] LABS: INR 1.12 (0.9-1.15); Partial Thromboplastin Time 32.9 sec (23.6-33.0); Potassium 4.2 mmol/L (3.5-5.1)
[2021-02-06] MEDS: IPRATROPIUM BROM 0.5 MG/2.5ML INH SOL NEB SCH ×3 (06:00→08:36)
[2021-02-06] MEDS: ALBUTEROL SULF 2.5 MG/0.5ML(0.5%) NEB SOLN NEB SCH ×3 (06:00→08:37)
[2021-02-06 06:13] LABS: Albumin 2.6 g/dL (3.4-5.0); BUN/Creatinine Ratio 9.9; Bilirubin, Total 0.3 mg/dL (0.2-1.0); Calcium 9.1 mg/dL (8.5-10.1); Magnesium 2.4 mg/dL (1.6-2.6); Total Protein 7.6 g/dL (6.4-8.2)
[2021-02-06] MEDS ORDERED: ALBUTEROL SULF 2.5 MG/0.5ML(0.5%) NEB SOLN NEB PRN (09:00)
[2021-02-06] MEDS ORDERED: IPRATROPIUM BROM 0.5 MG/2.5ML INH SOL NEB PRN (09:00)
[2021-02-06] MEDS: NICOTINE 21MG/24 HR TOPICAL PATCH TD SCH (09:25)
[2021-02-06] MEDS: LACTULOSE 20Gm/30ML SOLN PO PRN (09:26)
[2021-02-06 09:34] VITALS: BP 112/79
[2021-02-06] MEDS ORDERED: AZITHROMYCIN 250 MG TAB PO SCH (10:00)
[2021-02-06 12:35] VITALS: BP 114/71
[2021-02-06 17:00] VITALS: BP 103/72
[2021-02-06] MEDS: TEMAZEPAM 15 MG CAP PO PRN (21:45)
[2021-02-07] MEDS: HYDROcodone-ACET 5/325MG TAB PO PRN ×2 (03:25→09:02)
[2021-02-07] MEDS ORDERED: AZIT250T8 PO (08:55)
[2021-02-07] MEDS ORDERED: AZITHROMYCIN 250 MG TAB PO ONE ×2 (09:00)
[2021-02-07 09:43] VITALS: BP 125/73
[2021-02-07] MEDS: NICOTINE 21MG/24 HR TOPICAL PATCH TD SCH (11:37)
[2021-02-07 13:16] VITALS: BP 110/77
[2021-02-07 13:19] VITALS: BP 125/73
== END 2021-02-07 13:41 | disposition home or self-care (01) | DRG 121 ==
LOC: ER 20:52 → TELE 01-16 00:40 → TELE-WESTW 01-16 18:28 → WEST WING 02-02 21:41
PROVIDERS: ADMIT Nurse Practitioner; ATTEND Internal Medicine
PROC: 0W9930Z Drainage of Right Pleural Cavity with Drainage Device, Percutaneous Approach (ICD-10-PCS; principal; 2021-01-16)
PROC: 0B5N0ZZ Destruction of Right Pleura, Open Approach (ICD-10-PCS; 2021-01-24)
PROC: 0BBC0ZZ Excision of Right Upper Lung Lobe, Open Approach (ICD-10-PCS; 2021-01-24)
PROC: 0BQC0ZZ Repair Right Upper Lung Lobe, Open Approach (ICD-10-PCS; 2021-01-24)
PROC: 0WP9X0Z Removal of Drainage Device from Right Pleural Cavity, External Approach (ICD-10-PCS; 2021-02-06)
DX: J93.12 Secondary spontaneous pneumothorax (principal); J96.01 Acute respiratory failure with hypoxia; T79.7XXA Traumatic subcutaneous emphysema, initial encounter; J18.9 Pneumonia, unspecified organism; J44.0 Chronic obstructive pulmonary disease with (acute) lower respiratory infection; R91.1 Solitary pulmonary nodule; J98.11 Atelectasis; F11.20 Opioid dependence, uncomplicated; F17.210 Nicotine dependence, cigarettes, uncomplicated; G89.29 Other chronic pain; M19.90 Unspecified osteoarthritis, unspecified site; J93.82 Other air leak; N18.9 Chronic kidney disease, unspecified; Z20.822 Contact with and (suspected) exposure to COVID-19; J98.4 Other disorders of lung; Y93.89 Activity, other specified; Y92.89 Other specified places as the place of occurrence of the external cause; Y99.8 Other external cause status
CPT/HCPCS: 32556; 36415; 71045; 71046; 71250; 80048; 80053; 82103; 83735; 84100; 84443; 85025; 85610; 85730; 86850; 86900; 86901; 87081; 87426; 94640; 96374; 96375; 99152; 99291; G0378; J0690; J1956; J2250; J2405; J2704

== ENCOUNTER 2021-05-05 13:25 | Inpatient (IN) | payer MEDICAID ==
[~2021-05-05] VITALS: Ht 172.7 cm; Wt 68.0 kg
[~2021-05-05 13:25] MED LIST changes: +AZIT250T8 PO
[2021-05-05 14:47] LABS: Basophils # (auto) 0 10 ^3/uL (0-0.2); Basophils % (auto) 0.2 % (0.0-2.0); Eosinophils # (auto) 0 10 ^3/uL (0-0.8); Hematocrit 38.5 % (41.0-53.0); Hemoglobin 13.4 g/dL (13.5-17.5); Lymphocytes # (auto) 0.4 10 ^3/uL (0.4-5.4); Lymphocytes % (auto) 10.1 % (10.0-50.0); Mean Corpuscular Hemoglobin 30.6 pg (28.0-32.0); Mean Corpuscular Hgb Conc. 34.9 g/dL (32.0-36.0); Mean Corpuscular Volume 87.5 fL (80.0-100.0); Monocytes # (auto) 0.2 10 ^3/uL (0-1.3); Monocytes % (auto) 5.6 % (0.0-12.0); Neutrophils # (auto) 3.1 10 ^3/uL (1.6-8.6); Neutrophils % (auto) 84.1 % (37.0-80.0); Nucleated Red Blood Cells % 0.1 %; Red Cell Distribution Width 14.5 % (11.8-14.3); White Blood Cell 3.7 10^3/uL (4.4-10.8)
[2021-05-05 14:59] LABS: BUN/Creatinine Ratio 12.3; Calcium 7.8 mg/dL (8.5-10.1)
[2021-05-05 15:02] LABS: Bilirubin, Total 0.4 mg/dL (0.2-1.0); Total Protein 6.3 g/dL (6.4-8.2)
[2021-05-05] MEDS ORDERED: DexAMETHasone SOD PHOS 10MG/1ML VIAL INJ IV ONE (15:30)
[2021-05-05] MEDS ORDERED: cefTRIAXone 1GM/50ML D5W 50 ML IV ONE (15:30)
[2021-05-05] MEDS ORDERED: AZITHROMYCIN 500MG/ 250ML 250 ML IV ONE (15:30)
[2021-05-05] MEDS: SODIUM CHLORIDE 0.9% 1,000 ML IV SCH (22:00)
[2021-05-05] MEDS ORDERED: HYDROcodone-ACET 5/325MG TAB PO PRN (22:00)
[2021-05-05] MEDS ORDERED: DOCUSATE SOD 100 MG CAP PO PRN (22:00)
[2021-05-05] MEDS: ASCORBIC ACID 500 MG TAB PO SCH (22:00)
[2021-05-05] MEDS ORDERED: ONDANSETRON HCL 4 MG/2 ML VIAL IV PRN (22:00)
[2021-05-05] MEDS ORDERED: ACETAMINOPHEN 325 MG TAB PO PRN (22:00)
[2021-05-06] MEDS ORDERED: NITROGLYCERIN 0.4 MG SL TAB SL PRN
[2021-05-06] MEDS ORDERED: MORPHINE SULFATE INJECTION 2 MG/ML SYRG IV PRN
[2021-05-06 04:18] LABS: Basophils # (auto) 0 10 ^3/uL (0-0.2); Basophils % (auto) 0.2 % (0.0-2.0); Eosinophils # (auto) 0 10 ^3/uL (0-0.8); Hematocrit 41.9 % (41.0-53.0); Hemoglobin 14.5 g/dL (13.5-17.5); Lymphocytes # (auto) 0.4 10 ^3/uL (0.4-5.4); Mean Corpuscular Hemoglobin 30.7 pg (28.0-32.0); Mean Corpuscular Hgb Conc. 34.7 g/dL (32.0-36.0); Mean Corpuscular Volume 88.5 fL (80.0-100.0); Monocytes # (auto) 0.2 10 ^3/uL (0-1.3); Monocytes % (auto) 5.3 % (0.0-12.0); Neutrophils # (auto) 3.1 10 ^3/uL (1.6-8.6); Neutrophils % (auto) 83.5 % (37.0-80.0); Red Blood Cells 4.73 10^6/uL (4.5-5.90); Red Cell Distribution Width 14.4 % (11.8-14.3); White Blood Cell 3.8 10^3/uL (4.4-10.8)
[2021-05-06 04:33] LABS: Potassium 4.9 mmol/L (3.5-5.1)
[2021-05-06 04:43] LABS: Albumin 2.9 g/dL (3.4-5.0); BUN/Creatinine Ratio 15.4; Bilirubin, Total 0.2 mg/dL (0.2-1.0); Total Protein 6.2 g/dL (6.4-8.2)
[2021-05-06] MEDS: cefTRIAXone 1GM/50ML D5W 50 ML IV SCH (09:06)
[2021-05-06] MEDS: DexAMETHasone SOD PHOS 10MG/1ML VIAL INJ IV SCH (09:42)
[2021-05-06] MEDS: FAMOTIDINE (10MG/ML) 2ML VL IV SCH (09:42)
[2021-05-06] MEDS: AZITHROMYCIN 500MG/ 250ML 250 ML IV SCH (09:42)
[2021-05-06] MEDS: ZINC SULFATE 220mg CAP or TAB PO SCH (09:43)
[2021-05-06] MEDS: MULTIPLE VITAMIN TAB PO SCH (09:43)
[2021-05-06] MEDS: ASCORBIC ACID 500 MG TAB PO SCH ×2 (09:43→21:17)
[2021-05-06] MEDS: ENOXAPARIN SOD 40 MG/0.4 ML SYRINGE SC SCH (09:43)
[2021-05-06] MEDS: SODIUM CHLORIDE 0.9% 1,000 ML IV SCH (13:11)
[2021-05-06] MEDS ORDERED: REMDESIVIR PER PHARMACY 0 ML IV SCH (13:15)
[2021-05-06 14:30] VITALS: BP 130/82
[2021-05-06] MEDS ORDERED: REMDESIVIR 200 MG in NS 210ml LOADING DOSE ADULT IV ONE (15:30)
[2021-05-06] MEDS ORDERED: HYDR-4833 PO (16:04)
[2021-05-06 17:00] VITALS: BP 101/60
[2021-05-06 22:00] VITALS: BP 103/59
[2021-05-07 05:00] VITALS: BP 100/54
[2021-05-07] MEDS: SODIUM CHLORIDE 0.9% 1,000 ML IV SCH (06:20)
[2021-05-07 06:53] LABS: Basophils # (auto) 0 10 ^3/uL (0-0.2); Basophils % (auto) 0.1 % (0.0-2.0); Eosinophils # (auto) 0 10 ^3/uL (0-0.8); Hematocrit 39.5 % (41.0-53.0); Hemoglobin 13.3 g/dL (13.5-17.5); Lymphocytes # (auto) 0.4 10 ^3/uL (0.4-5.4); Mean Corpuscular Hemoglobin 29.9 pg (28.0-32.0); Mean Corpuscular Hgb Conc. 33.6 g/dL (32.0-36.0); Mean Corpuscular Volume 88.9 fL (80.0-100.0); Monocytes # (auto) 0.3 10 ^3/uL (0-1.3); Monocytes % (auto) 5.8 % (0.0-12.0); Neutrophils # (auto) 4.7 10 ^3/uL (1.6-8.6); Neutrophils % (auto) 86.1 % (37.0-80.0); Nucleated Red Blood Cells % 0.1 %; Red Blood Cells 4.44 10^6/uL (4.5-5.90); Red Cell Distribution Width 14.6 % (11.8-14.3); White Blood Cell 5.4 10^3/uL (4.4-10.8)
[2021-05-07 07:11] LABS: Albumin 2.5 g/dL (3.4-5.0); Calcium 7.3 mg/dL (8.5-10.1); Potassium 4.2 mmol/L (3.5-5.1)
[2021-05-07 07:16] LABS: BUN/Creatinine Ratio 14.9; Bilirubin, Total 0.3 mg/dL (0.2-1.0); Total Protein 5.5 g/dL (6.4-8.2)
[2021-05-07] MEDS: DexAMETHasone SOD PHOS 10MG/1ML VIAL INJ IV SCH (08:24)
[2021-05-07] MEDS: cefTRIAXone 1GM/50ML D5W 50 ML IV SCH (08:24)
[2021-05-07] MEDS: AZITHROMYCIN 500MG/ 250ML 250 ML IV SCH (08:25)
[2021-05-07] MEDS: MULTIPLE VITAMIN TAB PO SCH (08:25)
[2021-05-07] MEDS: ZINC SULFATE 220mg CAP or TAB PO SCH (08:25)
[2021-05-07] MEDS: FAMOTIDINE (10MG/ML) 2ML VL IV SCH (08:25)
[2021-05-07] MEDS: ASCORBIC ACID 500 MG TAB PO SCH ×2 (08:26→21:38)
[2021-05-07] MEDS: ENOXAPARIN SOD 40 MG/0.4 ML SYRINGE SC SCH (08:26)
[2021-05-07] MEDS: IVERMECTIN 3 MG TAB PO SCH (08:26)
[2021-05-07 09:00] VITALS: BP 96/53
[2021-05-07] MEDS ORDERED: FUROSEMIDE 20 MG/2 ML VIAL IV ONE (10:30)
[2021-05-07 13:00] VITALS: BP 93/55
[2021-05-07] MEDS: REMDESIVIR 100mg 100 MG in SODIUM CHL 0.9% 230 ML IV SCH (14:42)
[2021-05-07 17:00] VITALS: BP 99/52
[2021-05-07 22:00] VITALS: BP 96/52
[2021-05-08 05:00] VITALS: BP 104/57
[2021-05-08 05:47] LABS: Albumin 2.4 g/dL (3.4-5.0); Calcium 7.6 mg/dL (8.5-10.1); Potassium 4.6 mmol/L (3.5-5.1)
[2021-05-08 05:51] LABS: BUN/Creatinine Ratio 22.7; Bilirubin, Total 0.2 mg/dL (0.2-1.0); Total Protein 5.4 g/dL (6.4-8.2)
[2021-05-08] MEDS: cefTRIAXone 1GM/50ML D5W 50 ML IV SCH (08:38)
[2021-05-08] MEDS: ZINC SULFATE 220mg CAP or TAB PO SCH (08:39)
[2021-05-08] MEDS: DexAMETHasone SOD PHOS 10MG/1ML VIAL INJ IV SCH (08:39)
[2021-05-08] MEDS: AZITHROMYCIN 500MG/ 250ML 250 ML IV SCH (08:40)
[2021-05-08] MEDS: FAMOTIDINE (10MG/ML) 2ML VL IV SCH (08:40)
[2021-05-08] MEDS: IVERMECTIN 3 MG TAB PO SCH (08:41)
[2021-05-08] MEDS: ASCORBIC ACID 500 MG TAB PO SCH ×2 (08:41→22:05)
[2021-05-08] MEDS: MULTIPLE VITAMIN TAB PO SCH (08:41)
[2021-05-08] MEDS: ENOXAPARIN SOD 40 MG/0.4 ML SYRINGE SC SCH (08:42)
[2021-05-08] MEDS: FUROSEMIDE 20 MG/2 ML VIAL IV SCH (08:47)
[2021-05-08 09:00] VITALS: BP 91/52
[2021-05-08 13:00] VITALS: BP 95/53
[2021-05-08] MEDS: REMDESIVIR 100mg 100 MG in SODIUM CHL 0.9% 230 ML IV SCH (14:22)
[2021-05-08] MEDS: SODIUM CHLORIDE 0.9% 1,000 ML IV SCH ×2 (16:40)
[2021-05-08 17:00] VITALS: BP 97/55
[2021-05-08 20:00] VITALS: BP 101/54
[2021-05-08 22:30] VITALS: BP 101/54
[2021-05-09 05:00] VITALS: BP 92/54
[2021-05-09] MEDS: cefTRIAXone 1GM/50ML D5W 50 ML IV SCH (08:01)
[2021-05-09] MEDS: FAMOTIDINE (10MG/ML) 2ML VL IV SCH (08:02)
[2021-05-09] MEDS: DexAMETHasone SOD PHOS 10MG/1ML VIAL INJ IV SCH (08:02)
[2021-05-09] MEDS: SODIUM CHLORIDE 0.9% 1,000 ML IV SCH (08:02)
[2021-05-09] MEDS: MULTIPLE VITAMIN TAB PO SCH (08:03)
[2021-05-09] MEDS: AZITHROMYCIN 500MG/ 250ML 250 ML IV SCH (08:03)
[2021-05-09] MEDS: ZINC SULFATE 220mg CAP or TAB PO SCH (08:03)
[2021-05-09] MEDS: ENOXAPARIN SOD 40 MG/0.4 ML SYRINGE SC SCH (08:04)
[2021-05-09] MEDS: IVERMECTIN 3 MG TAB PO SCH (08:04)
[2021-05-09] MEDS: ASCORBIC ACID 500 MG TAB PO SCH ×2 (08:04→20:30)
[2021-05-09] MEDS: FUROSEMIDE 20 MG/2 ML VIAL IV SCH (09:08)
[2021-05-09 09:52] LABS: Potassium 3.8 mmol/L (3.5-5.1)
[2021-05-09 09:58] LABS: Albumin 2.4 g/dL (3.4-5.0); BUN/Creatinine Ratio 21.3; Bilirubin, Total 0.3 mg/dL (0.2-1.0); Calcium 7.4 mg/dL (8.5-10.1); Total Protein 5.2 g/dL (6.4-8.2)
[2021-05-09] MEDS: REMDESIVIR 100mg 100 MG in SODIUM CHL 0.9% 230 ML IV SCH (16:51)
[2021-05-09 17:51] VITALS: BP 91/60
[2021-05-09 22:00] VITALS: BP 106/65
[2021-05-10] MEDS: SODIUM CHLORIDE 0.9% 1,000 ML IV SCH (02:00)
[2021-05-10 05:00] VITALS: BP 106/69
[2021-05-10 05:39] LABS: Basophils # (auto) 0 10 ^3/uL (0-0.2); Basophils % (auto) 0.1 % (0.0-2.0); Eosinophils # (auto) 0 10 ^3/uL (0-0.8); Eosinophils % (auto) 0.1 % (0.0-7.0); Hemoglobin 13.8 g/dL (13.5-17.5); Lymphocytes # (auto) 0.9 10 ^3/uL (0.4-5.4); Mean Corpuscular Hemoglobin 30.5 pg (28.0-32.0); Mean Corpuscular Hgb Conc. 34.4 g/dL (32.0-36.0); Mean Corpuscular Volume 88.7 fL (80.0-100.0); Monocytes # (auto) 0.7 10 ^3/uL (0-1.3); Monocytes % (auto) 14.4 % (0.0-12.0); Neutrophils # (auto) 3.2 10 ^3/uL (1.6-8.6); Neutrophils % (auto) 66.4 % (37.0-80.0); Nucleated Red Blood Cells % 0.1 %; Red Blood Cells 4.52 10^6/uL (4.5-5.90); Red Cell Distribution Width 14.7 % (11.8-14.3); White Blood Cell 4.8 10^3/uL (4.4-10.8)
[2021-05-10 06:02] LABS: Albumin 2.4 g/dL (3.4-5.0); Potassium 4.8 mmol/L (3.5-5.1)
[2021-05-10 06:05] LABS: BUN/Creatinine Ratio 16.9
[2021-05-10 06:08] LABS: Bilirubin, Total 0.4 mg/dL (0.2-1.0); Total Protein 5.6 g/dL (6.4-8.2)
[2021-05-10 09:00] VITALS: BP 95/65
[2021-05-10] MEDS: cefTRIAXone 1GM/50ML D5W 50 ML IV SCH (09:12)
[2021-05-10] MEDS: DexAMETHasone SOD PHOS 10MG/1ML VIAL INJ IV SCH (09:13)
[2021-05-10] MEDS: FUROSEMIDE 20 MG/2 ML VIAL IV SCH (09:13)
[2021-05-10] MEDS: FAMOTIDINE (10MG/ML) 2ML VL IV SCH (09:13)
[2021-05-10] MEDS: ZINC SULFATE 220mg CAP or TAB PO SCH (09:13)
[2021-05-10] MEDS: MULTIPLE VITAMIN TAB PO SCH (09:14)
[2021-05-10] MEDS: ASCORBIC ACID 500 MG TAB PO SCH (09:14)
[2021-05-10] MEDS: IVERMECTIN 3 MG TAB PO SCH (09:14)
[2021-05-10] MEDS: ENOXAPARIN SOD 40 MG/0.4 ML SYRINGE SC SCH (09:15)
[2021-05-10] MEDS: AZITHROMYCIN 500MG/ 250ML 250 ML IV SCH (10:31)
[2021-05-10] MEDS ORDERED: PRED20TA2 PO (11:49)
[2021-05-10] MEDS ORDERED: LEVO750T64 PO (11:49)
[2021-05-10] MEDS ORDERED: ASCO500T11 PO (11:49)
[2021-05-10] MEDS ORDERED: ERGO20002 PO (11:49)
[2021-05-10 13:00] VITALS: BP 96/53
[2021-05-10] MEDS: REMDESIVIR 100mg 100 MG in SODIUM CHL 0.9% 230 ML IV SCH (13:10)
[2021-05-10 13:12] VITALS: BP 95/65
== END 2021-05-10 15:00 | disposition home or self-care (01) | DRG 137 ==
LOC: ER 13:25 → OVERFLOW 23:48 → EAST 05-06 14:11
PROVIDERS: ADMIT Nurse Practitioner Family; ATTEND Internal Medicine Pulmonary Disease
PROC: XW033E5 Introduction of Remdesivir Anti-infective into Peripheral Vein, Percutaneous Approach, New Technology Group 5 (ICD-10-PCS; principal; 2021-05-06)
DX: U07.1 COVID-19 (principal); J96.01 Acute respiratory failure with hypoxia; J12.82 Pneumonia due to coronavirus disease 2019; E87.1 Hypo-osmolality and hyponatremia; E88.09 Other disorders of plasma-protein metabolism, not elsewhere classified; F17.210 Nicotine dependence, cigarettes, uncomplicated; J43.9 Emphysema, unspecified; R73.9 Hyperglycemia, unspecified
CPT/HCPCS: 36415; 71045; 71046; 71275; 80053; 82728; 83036; 83615; 83735; 85025; 85379; 86141; 87426; 96365; 96368; 96375; 99291; G0378; J0696; J1100; J3490

== ENCOUNTER 2022-08-17 16:37 | Emergency (ER) | payer MEDICAID ==
[~2022-08-17] VITALS: Ht 172.7 cm; Wt 72.4 kg
[~2022-08-17 16:37] MED LIST changes: +ASCO500T11 PO; -AZIT250T8 PO; +ERGO20002 PO; +HYDR-4833 PO; +LEVO750T64 PO; +PRED20TA2 PO
[2022-08-17 18:32] VITALS: BP 152/80
[2022-08-17] MEDS ORDERED: CEPH-510 PO (19:21)
== END 2022-08-17 19:26 | disposition home or self-care (01) ==
LOC: ER 16:37
DX: S41.111A Laceration without foreign body of right upper arm, initial encounter (principal); Z88.1 Allergy status to other antibiotic agents; X58.XXXA Exposure to other specified factors, initial encounter; Y93.89 Activity, other specified; Y92.89 Other specified places as the place of occurrence of the external cause; Y99.8 Other external cause status
CPT/HCPCS: 12002

== ENCOUNTER 2022-09-20 21:48 | Emergency (ER) | payer MEDICAID, OTHER ==
[~2022-09-20] VITALS: Ht 172.7 cm; Wt 71.6 kg
[~2022-09-20 21:48] MED LIST changes: +CEPH-510 PO
[2022-09-21 01:20] VITALS: BP 130/75
== END 2022-09-21 01:24 | disposition home or self-care (01) ==
LOC: ER 21:48
DX: M47.816 Spondylosis without myelopathy or radiculopathy, lumbar region (principal); R91.1 Solitary pulmonary nodule; R51.9 Headache, unspecified; M54.2 Cervicalgia; Z88.1 Allergy status to other antibiotic agents; Z88.6 Allergy status to analgesic agent; V43.52XA Car driver injured in collision with other type car in traffic accident, initial encounter; Y93.89 Activity, other specified; Y92.89 Other specified places as the place of occurrence of the external cause; Y99.8 Other external cause status
CPT/HCPCS: 70450; 72125; 72128; 72131

== ENCOUNTER 2023-01-19 15:35 | Emergency (ER) | payer MEDICAID, OTHER ==
[~2023-01-19] VITALS: Ht 172.7 cm; Wt 72.0 kg
[~2023-01-19 15:35] MED LIST changes: +LEVO750T40 PO; -LEVO750T64 PO
[2023-01-19 15:51] VITALS: BP 142/90; PULSE 86; RESP 18; TEMP 98; O2SAT 96
[2023-01-19] MEDS ORDERED: CEPH250C2 PO (17:27)
[2023-01-19] MEDS ORDERED: METH4PAK PO (17:30)
[2023-01-19] MEDS ORDERED: cefTRIAXone SOD 1,000 MG VL IM ONE (17:30)
[2023-01-19] MEDS ORDERED: KETOROLAC TROMETH 60MG/2ML VIAL IM ONE (17:30)
[2023-01-24] MEDS ORDERED: DOXY-447 PO (10:23)
== END 2023-01-19 17:40 | disposition home or self-care (01) ==
LOC: ER 15:35
DX: L03.115 Cellulitis of right lower limb (principal); L03.114 Cellulitis of left upper limb; Z90.89 Acquired absence of other organs; Z79.2 Long term (current) use of antibiotics; Z79.899 Other long term (current) drug therapy
CPT/HCPCS: 96372; 99284; J0696; J1885

== ENCOUNTER 2023-01-22 14:36 | Emergency (ER) | payer MEDICAID ==
[~2023-01-22] VITALS: Ht 172.7 cm; Wt 71.6 kg
[~2023-01-22 14:36] MED LIST changes: +CEPH250C2 PO; +METH4PAK PO
[2023-01-22 16:08] LABS: Basophils # (auto) 0 10 ^3/uL (0-0.2); Basophils % (auto) 0.1 % (0.0-2.0); Eosinophils # (auto) 0 10 ^3/uL (0-0.8); Eosinophils % (auto) 0.1 % (0.0-7.0); Hematocrit 41.1 % (41.0-53.0); Hemoglobin 14.2 g/dL (13.5-17.5); Lymphocytes # (auto) 1.2 10 ^3/uL (0.4-5.4); Lymphocytes % (auto) 6.8 % (10.0-50.0); Mean Corpuscular Hemoglobin 31.9 pg (28.0-32.0); Mean Corpuscular Hgb Conc. 34.6 g/dL (32.0-36.0); Mean Corpuscular Volume 92.1 fL (80.0-100.0); Monocytes # (auto) 0.9 10 ^3/uL (0-1.3); Monocytes % (auto) 5.3 % (0.0-12.0); Neutrophils # (auto) 14.9 10 ^3/uL (1.6-8.6); Neutrophils % (auto) 87.7 % (37.0-80.0); Red Blood Cells 4.46 10^6/uL (4.5-5.90); Red Cell Distribution Width 12.2 % (11.8-14.3)
[2023-01-22 16:38] LABS: Alanine Aminotransferase 26 U/L (7-40); Albumin 4.9 g/dL (3.2-4.8); Alkaline Phosphatase 62 U/L (46-116); Anion Gap 7.8 (5-15); Aspartate Aminotransferase 14 U/L (13-40); BUN/Creatinine Ratio 13.8 (10.0-20.0); Blood Urea Nitrogen 13 mg/dL (9-23); Calcium 9.5 mg/dL (8.5-10.1); Carbon Dioxide 23.2 mmol/L (20-30); Chloride 103 mmol/L (98-107); Glucose 126 mg/dL (74-106); Potassium 3.8 mmol/L (3.5-5.1); Sodium 134 mmol/L (136-145)
[2023-01-22 16:39] LABS: Bilirubin, Total 0.3 mg/dL (0.2-1.0); Total Protein 7.9 g/dL (5.7-8.2)
[2023-01-22 16:47] LABS: CRP High Sensitivity 3.19 mg/dL (<1.0)
[2023-01-22 17:06] LABS: Erythrocyte Sedimentation Rate 26 mm/hr (0-20)
[2023-01-22 19:11] VITALS: BP 157/85; PULSE 97; RESP 18; TEMP 97.9; O2SAT 99
[2023-01-24] MEDS ORDERED: DOXY-447 PO (10:23)
== END 2023-01-22 21:57 | disposition left against medical advice (07) ==
LOC: ER 14:36
DX: D72.829 Elevated white blood cell count, unspecified (principal); M25.572 Pain in left ankle and joints of left foot; M25.571 Pain in right ankle and joints of right foot; R06.02 Shortness of breath
CPT/HCPCS: 36415; 80053; 83605; 83880; 84484; 85025; 85652; 86141; 93970

== ENCOUNTER 2023-01-24 14:26 | Emergency (ER) | payer MEDICAID ==
[~2023-01-24] VITALS: Ht 172.7 cm; Wt 67.0 kg
[~2023-01-24 14:26] MED LIST changes: +DOXY-447 PO
[2023-01-24] MEDS ORDERED: BACDST PO (15:03)
[2023-01-24 15:14] VITALS: BP 135/87; PULSE 97; RESP 18; TEMP 98; O2SAT 98
== END 2023-01-24 15:22 | disposition home or self-care (01) ==
LOC: ER 14:26
DX: L03.115 Cellulitis of right lower limb (principal); M19.90 Unspecified osteoarthritis, unspecified site; F17.210 Nicotine dependence, cigarettes, uncomplicated; Z90.89 Acquired absence of other organs; Z79.1 Long term (current) use of non-steroidal anti-inflammatories (NSAID); Z79.899 Other long term (current) drug therapy

== ENCOUNTER 2023-02-20 09:28 | Emergency (ER) | payer MEDICAID ==
[~2023-02-20] VITALS: Ht 172.7 cm; Wt 67.5 kg
[~2023-02-20 09:28] MED LIST changes: +BACDST PO
[2023-02-20 10:28] VITALS: BP 139/107; PULSE 118; RESP 18; TEMP 98.3; O2SAT 96
[2023-02-20] MEDS ORDERED: CEPH500C PO ×3 (11:00→11:01)
== END 2023-02-20 11:02 | disposition home or self-care (01) ==
LOC: ER 09:28
DX: M17.11 Unilateral primary osteoarthritis, right knee (principal); M25.461 Effusion, right knee; F17.210 Nicotine dependence, cigarettes, uncomplicated; Z79.899 Other long term (current) drug therapy; Z98.890 Other specified postprocedural states

== ENCOUNTER 2023-04-07 05:49 | Emergency (ER) | payer MEDICAID ==
[~2023-04-07] VITALS: Ht 172.7 cm; Wt 68.0 kg
[~2023-04-07 05:49] MED LIST changes: +CEPH500C PO
[2023-04-07 06:01] VITALS: BP 112/57; PULSE 70; RESP 16; TEMP 97.9; O2SAT 98
[2023-04-07 06:57] LABS: Urine Bacteria NONE SEEN /hpf (None Seen); Urine Blood Negative /uL (Negative); Urine Clarity Clear (Clear); Urine Color Yellow (Yellow); Urine Protein, UAD Negative (Negative); Urine Specific Gravity 1.013 (1.001-1.035); Urine Urobilinogen Normal (Negative); Urine WBC 1 /hpf (0 - 3); Urine pH 5.5 (5.0-8.0)
[2023-04-07] MEDS ORDERED: cefTRIAXone SOD 500 MG VL IM ONE (07:30)
[2023-04-07] MEDS ORDERED: DOXY-286 PO (07:53)
[2023-04-09 10:07] LABS: RPR Non Reactive (Non Reactive)
[2023-04-09 23:06] LABS: Chlamydia Trachomatis, NAA Negative (Negative); Neisseria gonorrhoeae, NAA Negative (Negative)
== END 2023-04-07 08:24 | disposition home or self-care (01) ==
LOC: ER 05:49
DX: R36.9 Urethral discharge, unspecified (principal); R30.0 Dysuria; F17.210 Nicotine dependence, cigarettes, uncomplicated; Z72.51 High risk heterosexual behavior; Z20.6 Contact with and (suspected) exposure to human immunodeficiency virus [HIV]
CPT/HCPCS: 81001; 86592; 86703; 87491; 87591; 96372; 99283; J0696

== ENCOUNTER 2023-04-08 10:05 | Emergency (ER) | payer MEDICAID ==
[~2023-04-08] VITALS: Ht 172.7 cm; Wt 70.6 kg
[~2023-04-08 10:05] MED LIST changes: +DOXY-286 PO
[2023-04-08 11:42] VITALS: BP 139/77; PULSE 105; RESP 18; TEMP 98.1; O2SAT 96
== END 2023-04-08 13:39 | disposition home or self-care (01) ==
LOC: ER 10:05
DX: M25.461 Effusion, right knee (principal); F17.210 Nicotine dependence, cigarettes, uncomplicated; Z90.89 Acquired absence of other organs; Z79.2 Long term (current) use of antibiotics; Z79.899 Other long term (current) drug therapy
CPT/HCPCS: 73700

== ENCOUNTER 2024-07-27 11:58 | Inpatient (IN) | payer MEDICAID ==
[~2024-07-27] VITALS: Ht 167.6 cm; Wt 72.0 kg
[~2024-07-27 11:58] MED LIST changes: -DOXY-447 PO; +DOXY1CAP58 PO
--- NOTE | 2024-07-27 12:06 | ED.PDOC ---
GI ASSESSMENT HPI Comments 43 y.o male with PMHx of HTN and rheumatoid arthritis, presents to the ED via EMS for a chief complaint of diffused abdominal pain associated with nausea and vomiting that started this morning around 0400. Patient describes pain as sharp, constant, and non radiating. EMS administrated IV Zofran and 1 gram of Tylenol with pain level decreasing from a 10/10 to a 8/10 on the pain scale. Patient denies any fever, hematemesis, rectal bleeding, hematuria, diarrhea, dysuria, chest pain or SOB. Patient admits to occasional alcohol use but denies any substance or tobacco use. Time Seen by MD: 12:00 Primary Care Provider: LEONEL Reviewed Notes: Nurses Notes, Lacing Operator Notes, Medications, Allergies Allergies: Coded Allergies: NO KNOWN ALLERGIES (Unverified , 10/15/18) Home Meds Active Scripts Doxycycline Hyclate (DOXYCYCLINE HYCLATE) 100 Mg Tab, 1 TAB PO BID for 7 Days, #14 TAB 0 Refills Prov:MATT LLANOS MACHINE ROUGH ROUNDER 04/07/23 Cephalexin Monohydrate (Cephalexin) 500 Mg Cap, 1 CAP PO TID, #21 CAP Prov:ANA MARSH 02/20/23 Sulfamethoxazole W/Trimethopri (Bactrim Ds Tablet) 1 Tab Tb, 1 TAB PO BID for 7 Days, #14 TAB Prov:ARJUN BALDERAS PAC 01/24/23 Doxycycline (Monohydrate) (Doxycycline) 100 Mg Cap, 100 MG PO BID, #20 CAP Prov:ANA MARSH 01/24/23 Methylprednisolone (Medrol Dosepak) 4 Mg Jesse, 4 MG PO UD, #21 TAB UAD Prov:LYNDON BHAKTA MACHINE ROUGH ROUNDER 01/19/23 Cephalexin Base (Cephalexin) 250 Mg Cap, 250 MG PO QID for 10 Days, #40 CAP Prov:LYNDON BHAKTA MACHINE ROUGH ROUNDER 01/19/23 Cephalexin ( Keflex 500) 500 Mg Cap, 1 CAP PO QID for 5 Days, #20 CAP 0 Refills Prov:AUGUSTO MARTINEZ 08/17/22 Levofloxacin Hemihydrate (LEVOFLOXACIN) 750 Mg Tab, 1 TAB PO DAILY, #5 TAB Prov:JOEY SOMMERS MD 05/10/21 Prednisone (Prednisone) 20 Mg Tab, 20 MG PO BID for 5 Days, #10 TAB Prov:JOEY SOMMERS MD 05/10/21 Ergocalciferol (Vitamin D) 2,000 Unit Cap, 2000 UNIT PO DAILY for 30 Days, #30 CAP Prov:JOEY SOMMERS MD 05/10/21 Ascorbic Acid (VITAMIN C TABLET) 500 Mg Tb, 500 MG PO BID for 30 Days, #30 TAB Prov:JOEY SOMMERS MD 05/10/21 Reported Medications Hydrocodone-Acetaminophen ([place] 5-325 mg) 5-325 Tab, 2 TAB PO [id number] for Pain 8-10, #20 TAB 05/06/21 Hydrocodone-Acetaminophen (Hydrocodone/Acetaminophen 5-325 mg) 1 Tab Tab, 1 TAB PO, TAB 01/13/21 Tizanidine Hydrochloride (Zanaflex) 4 Mg Tab, 2 MG PO, TAB 01/13/21 Information Source: Patient, Emergency Med Personnel Mode of Arrival: EMS Timing: Hours Duration: Since onset Prehospital treatment: Pain Meds (1 gram Tylenol IV ), Treatment (zofran) Quality: Sharp Vomitus: Hard Stool: Normal Severity: Moderate Recent: None Recent Hx of: None Pain Location: Diffuse Associated sign and symptoms: Nausea, Vomiting, Abdominal Pain Past Medical History PAST MEDICAL HISTORY: Arthritis, HTN Surgical History: Thyroidectomy, Tonsillectomy Surgical History (Other): right lung procedure Family History Family History: Reviewed,noncontributory to illness Social History Smoker: Cigarettes Alcohol: Occasionally Drugs: Denies Drug Use Lives In: Home Constitutional: reports: chills; denies: diaphoresis, fatigue, fever, malaise, sweats, weakness, others EENTM: denies: blurred vision, double vision, ear bleeding, ear discharge, ear drainage, ear pain, ear ringing, eye pain, eye redness, hearing loss, mouth pain, mouth swelling, nasal discharge, nose bleeding, nose congestion, nose pain, photophobia, tearing, throat pain, throat swelling, voice changes, others Respiratory: denies: cough, hemoptysis, orthopnea, SOB at rest, shortness of breath, SOB with excertion, stridor, wheezing, others Cardiovascular: denies: chest pain, dizzy spells, diaphoresis, Dyspnea on exertion, edema, irregular heart beat, left arm pain, lightheadedness, pal pitations, PND, syncope, others Gastrointestinal: reports: abdominal pain, nausea, vomiting; denies: abdomen distended, blood streaked bowels, constipated, diarrhea, dysphagia, difficulty swallowing, hematemesis, melena, poor appetite, poor fluid intake, rectal bleeding, rectal pain, others Genitourinary: denies: burning, dysuria, flank pain, frequency, hematuria, incontinence, penile discharge, penile sore, pain, testicle pain, testicle swelling, urgency, others Neurological: denies: dizziness, fainting, headache, left sided numbness, left sided weakness, numbness, paresthesia, pre-existing deficit, right sided numbness, right sided weakness, seizure, speech problems, tingling, tremors, weakness, others Musculoskeletal: denies: back pain, gout, joint pain, joint swelling, muscle pain, muscle stiffness, neck pain, others Integumetry: denies: bruises, change in color, change in hair/nails, dryness, laceration, lesions, lumps, rash, wounds, others Allergic/Immunocompromised: denies: Difficulty Healing, Frequent Infections, Hives, Itching, others Hematologic/Lymphatic: denies: anemia, blood clots, easy bleeding, easy bruising, swollen glands, others Endocrine: denies: excessive hunger, excessive sweating, excessive thirst, excessive urination, flushing, intolerance to cold, intolerance to heat, unexplained weight gain, unexplained weight loss, others Psychiatric: denies: anxiety, bipolar disorder, depression, hopeless, panic disorder, schizophrenia, sleepless, suicidal, others All Other Systems: Reviewed and Negative Physical Exam General Appearance: Moderate Distress HEENT: Normal ENT Inspection, Pharynx Normal, TMs Normal Neck: Full Range of Motion, Non-Tender, Normal, Normal Inspection Respiratory: Chest Non-Tender, Lungs Clear, No Accessory Muscle Use, No Respir atory Distress, Normal Breath Sounds Cardiovascular: No Edema, No JVD, No Murmur, No Gallop, Normal Peripheral Pulses, Regular Rate/Rhythm Breast Exam: Deferred Gastrointestinal: Epigastric, No Organomegaly, No Pulsatile Mass, Normal Bowel Sounds, Soft, Tenderness Genitalia: Deferred Pelvic: Deferred Rectal: Deferred Extremities: No calf tenderness, Normal capillary refill, Normal inspection, Normal range of motion, Non-tender, No pedal edema Musculoskeletal : Apperance: Normal Neurologic: Alert, cfa II-XII nml as Tested, No Motor Deficits, Normal Affect, Normal Mood, No Sensory Deficits Cerebellar Function: Normal Reflexes: Normal Skin: Dry, Normal Color, Warm Lymphatic: No Adenopathy Was a procedure done? Was a procedure done?: No GI differential Dx Differential Diagnosis: Cholangitis, Cholecystitis, Esophagitis, Gastritis/PUD, Food Poisoning, Bacterial, Viral X-Ray, Labs, Meds, VS Vital Signs Date Time Temp Pulse Resp B/P (MAP) Pulse Ox O2 Delivery O2 Flow Rate FiO2 07/27/24 13:57 96 16 128/67 07/27/24 13:39 98.2 96 16 128/67 (87) 94 98.2 07/27/24 13:36 96 16 94 Room Air* 0 21 07/27/24 12:08 98.6 78 18 126/84 (98) 97 98.6 Lab Test 07/27/24 12:48 Range/Units White Blood Count 15.5 H 4.4-10.8 10^3/uL Red Blood Count 5.62 4.5-5.90 10^6/uL Hemoglobin 18.1 H 13.5-17.5 g/dL Hematocrit 52.0 41.0-53.0 % Mean Corpuscular Volume 92.5 80.0-100.0 fL Mean Corpuscular Hemoglobin 32.2 H 28.0-32.0 pg Mean Corpuscular Hemoglobin Concent 34.8 32.0-36.0 g/dL Red Cell Distribution Width 12.9 11.8-14.3 % Platelet Count 344 140-450 10^3/uL Mean Platelet Volume 7.6 6.9-10.8 fL Neutrophils (%) (Auto) 89.1 H 37.0-80.0 % Lymphocytes (%) (Auto) 6.2 L 10.0-50.0 % Monocytes (%) (Auto) 4.1 0.0-12.0 % Eosinophils (%) (Auto) 0.4 0.0-7.0 % Basophils (%) (Auto) 0.2 0.0-2.0 % Neutrophils # (Auto) 13.8 H 1.6-8.6 10 ^3/uL Lymphocytes # (Auto) 1.0 0.4-5.4 10 ^3/uL Monocytes # (Auto) 0.6 0-1.3 10 ^3/uL Eosinophils # (Auto) 0.1 0-0.8 10 ^3/uL Basophils # (Auto) 0 0-0.2 10 ^3/uL Nucleated Red Blood Cells 0.4 % Sodium Level 137 136-145 mmol/L Potassium Level 4.4 3.5-5.1 mmol/L Chloride Level 101 98-107 mmol/L Carbon Dioxide Level 28 20-31 mmol/L Anion Gap 8 5-15 Blood Urea Nitrogen 13 9-23 mg/dL Creatinine 1.43 H 0.700-1.30 mg/dL Glomerular Filtration Rate Calc 62 >90 mL/min BUN/Creatinine Ratio 9.1 L 10.0-20.0 Serum Glucose 117 H 74-106 mg/dL Calcium Level 11.1 H 8.7-10.4 mg/dL Total Bilirubin 0.6 0.2-1.0 mg/dL Aspartate Amino Transferase (AST) 25 13-40 U/L Alanine Aminotransferase (ALT) 29 7-40 U/L Alkaline Phosphatase 81 46-116 U/L Total Protein 8.0 5.7-8.2 g/dL Albumin 5.4 H 3.2-4.8 g/dL Lipase 36 12-53 U/L Current Medications Medications (Trade) Dose Ordered Sig/Artem Route Start Time Stop Time Status Last Admin Sodium Chloride 1,000 ml @ 1,000 mls/hr Q1H ONCE IVB 07/27/24 12:15 07/27/24 13:14 DC 07/27/24 13:19 Prochlorperazine Edisylate (Compazine Inj) 10 mg ONCE ONCE IV 07/27/24 12:15 07/27/24 12:16 DC 07/27/24 13:20 Pantoprazole Sodium (Protonix) 40 mg ONCE ONCE IV 07/27/24 12:15 07/27/24 12:16 DC 07/27/24 13:20 Morphine Sulfate 4 mg ONCE ONCE IV 07/27/24 14:00 07/27/24 14:01 DC 07/27/24 13:57 CT abdomen and pelvis without contrast IMPRESSION: 1. Findings suggest possible small-bowel obstruction in the ileum etiology u ncertain. No signs of appendicitis or active infection. Question of prior surgery or adhesion Referring physician given a verbal report at 12:30 p.m. IV Hep-Lock was established The patient was given a 1 L bolus of normal saline. The patient was given Compazine 10 mg IV push for the nausea and vomiting The patient was given Protonix 40 mg IV push The patient was given morphine 4 mg IV push for the pain. The patient's CBC shows an elevated white blood cell count of 15.5 The rest of the CBC is within normal limits The chemistry panel is within normal limits. At this time, the patient will be admitted A surgical consult will be obtained. Images Reviewed?: Images reviewed and evaluated by me Time of 1ST Reevaluation: 12:02 Reevaluation 1ST: Unchanged Patient Education/Counseling: Diagnosis, Treatment, Prognosis Family Education/Counseling: No Family Present Departure 1 Departure Time of Disposition: 14:09 Impression: Primary Impression: Small bowel obstruction Additional Impression: Intractable abdominal pain Disposition: ADMITTED INPATIENT Admit to: Med Surg Condition: Fair Critical Care Note Critical Care Time?: No Stability Stability form required: Yes Unstable for transfer: ED Physician Assesment (Clinical assesment) I personally scribed for ASHLYN PERALTA MD ([email or web address]) on 07/27/24 at 12:06. Electronically submitted by Ada Rea ([facility]). I personally scribed for ASHLYN PERALTA MD ([email or web address]) on 07/27/24 at 12:56. Electronically submitted by Ada Rea ([facility]). ASHLYN PERALTA MD Jul 27, 2024 12:06 SG CANO MD Jul 27, 2024 12:42
--- NOTE | 2024-07-27 12:41 | DVH ---
CT abdomen and pelvis without contrast INDICATION: pain TECHNIQUE: Serial axial images were performed through the abdomen and pelvis and then reformatted in the sagittal and coronal plane. All CT scans at this medical facility are performed using dose modula tion techniques as appropriate to a performed exam including the following: Automated exposure contro l was utilized; adjustment of the MA and/or KvP according to patient size; and use of iterative recon struction technique. FINDINGS: Lung bases are clear. Liver and spleen are normal in size without focal mass. No renal masses, stones or hydronephrosis. No masses or enlargement of the adrenal glands or pancreas. No biliary dilatation. No gallstones. The small bowel is dilated down to the level of the pelvis where there is a transition point in the i leum. Colon is nondistended. Small colonic diverticuli are present. No signs of diverticulitis Appendix is normal in appearance. Urinary bladder is smooth walled without mass stone or hydronephrosis. No free fluid. Prostate gland normal in size. IMPRESSION: 1. Findings suggest possible small-bowel obstruction in the ileum etiology uncertain. No signs of kaela endicitis or active infection. Question of prior surgery or adhesion Referring physician given a verbal report at 12:30 p.m. Computed Tomographic Radiation Dosimetry Report: Total CTDI vol = 5.5 mGy Total DLP = 277 mGy-cm Low dose protocols were performed.
[2024-07-27 13:13] LABS: Basophils # (auto) 0 10 ^3/uL (0-0.2); Basophils % (auto) 0.2 % (0.0-2.0); Eosinophils # (auto) 0.1 10 ^3/uL (0-0.8); Eosinophils % (auto) 0.4 % (0.0-7.0); Hemoglobin 18.1 g/dL (13.5-17.5); Lymphocytes % (auto) 6.2 % (10.0-50.0); Mean Corpuscular Hemoglobin 32.2 pg (28.0-32.0); Mean Corpuscular Hgb Conc. 34.8 g/dL (32.0-36.0); Mean Corpuscular Volume 92.5 fL (80.0-100.0); Monocytes # (auto) 0.6 10 ^3/uL (0-1.3); Monocytes % (auto) 4.1 % (0.0-12.0); Neutrophils # (auto) 13.8 10 ^3/uL (1.6-8.6); Neutrophils % (auto) 89.1 % (37.0-80.0); Nucleated Red Blood Cells % 0.4 %; Platelet Count (auto) 344 10^3/uL (140-450); Red Blood Cells 5.62 10^6/uL (4.5-5.90); Red Cell Distribution Width 12.9 % (11.8-14.3); White Blood Cell 15.5 10^3/uL (4.4-10.8)
[2024-07-27 13:15] LABS: Alanine Aminotransferase 29 U/L (7-40); Alkaline Phosphatase 81 U/L (46-116); Anion Gap 8 (5-15); Aspartate Aminotransferase 25 U/L (13-40); BUN/Creatinine Ratio 9.1 (10.0-20.0); Blood Urea Nitrogen 13 mg/dL (9-23); Carbon Dioxide 28 mmol/L (20-31); Chloride 101 mmol/L (98-107); Lipase 36 U/L (12-53); Potassium 4.4 mmol/L (3.5-5.1); Sodium 137 mmol/L (136-145)
[2024-07-27 13:16] LABS: Bilirubin, Total 0.6 mg/dL (0.2-1.0)
[2024-07-27] MEDS: SODIUM CHLORIDE 0.9% 1,000 ML IVB ONE (13:19)
[2024-07-27] MEDS: PROCHLORPERAZINE EDISYLATE 5 MG/ML 2ML VIAL IV ONE ×2 (13:20→16:27)
[2024-07-27] MEDS: PANTOPRAZOLE 40 MG/10 ML VIAL INJ IV ONE (13:20)
[2024-07-27 13:28] LABS: Albumin 5.4 g/dL (3.2-4.8); Calcium 11.1 mg/dL (8.7-10.4); Glucose 117 mg/dL (74-106)
[2024-07-27 13:36] VITALS: PULSE 96; RESP 16; O2SAT 94
[2024-07-27] MEDS: MORPHINE SULFATE 4 MG/ML SYR/VIAL IV ONE ×2 (13:57→16:28)
[2024-07-27 16:29] VITALS: BP 124/71; PULSE 74; RESP 16; TEMP 97.6; O2SAT 97
[2024-07-27 16:39] LABS: Urine Bacteria None Seen /hpf (None Seen)
[2024-07-27 16:53] LABS: Urine Blood Negative /uL (Negative); Urine Clarity Clear (Clear); Urine Color Yellow (Yellow); Urine Protein, UAD TRACE (Negative); Urine Specific Gravity 1.035 (1.001-1.035); Urine Squamous Epithelial Cell FEW /hpf (<5); Urine Urobilinogen Normal (Negative); Urine WBC 3 /HPF (0-3)
[2024-07-27 17:11] LABS: Opiate Scree,Urine Pos (NEGATIVE)
[2024-07-27 17:12] LABS: Amphetamine Screen, Urine Pos (NEGATIVE); Barbiturate Scree,Urine Neg (NEGATIVE); Benzodiazephine Screen, Urine Neg (NEGATIVE); Cannabinoid Screen, Urine Neg (NEGATIVE); Cocaine Screen, Urine Pos (NEGATIVE); Phencyclidine Screen, Urine Neg (NEGATIVE)
[2024-07-27] MEDS ORDERED: MORPHINE SULFATE INJ 2 MG/ml SYRG IV PRN (18:45)
[2024-07-27] MEDS ORDERED: ONDANSETRON HCL 4 MG/2 ML VIAL IV PRN (18:45)
--- NOTE | 2024-07-27 21:13 | DVHHP2 ---
History of Present Illness Reason for Visit: Abdominal pain History of Present Illness 43-year-old male presents for evaluation of abdominal pain. Patient reports diffuse abdominal pain which started today. She reports episodes of nausea with vomiting. No diarrhea or constipation. Currently rates the pain at 7/10 intensity. No other acute complaints reported. Past Medical History Hypertension and arthritis Past Surgical History Tonsillectomy and thyroidectomy Family History Noncontributory Smoke: <1 pack per day ALCOHOL: occassional Drugs: None Lives: with Family Review of Systems Review of Systems Review of systems are currently negative otherwise addressed in HPI. Allergies: Coded Allergies: NO KNOWN ALLERGIES (Unverified , 10/15/18) Medications Current Medications Medications Dose Ordered Sig/Artem Route Start Time Stop Time Status Last Admin Dose Admin Pantoprazole Sodium 40 mg DAILY IV 07/28/24 10:00 Ondansetron HCl 4 mg Q4HP PRN IV 07/27/24 18:45 Morphine Sulfate 2 mg Q4HPRN PRN IV 07/27/24 18:45 Exam Vital Signs Vital Signs Date Time Temp Pulse Resp B/P (MAP) Pulse Ox O2 Delivery O2 Flow Rate FiO2 07/27/24 16:29 97.6 74 16 124/71 (88) 97 97.6 07/27/24 13:36 Room Air* 0 21 Exam Gen: 43-year-old male in mild distress Skin: Warm, dry, normal color and texture, no rash. HEENT: Normocephalic atraumatic, mucous membranes moist and pink. Neck: Cervical and supraclavicular nodes normal without enlargement, trachea is midline, thyroid gland is normal without masses. Pulmonary: Clear to auscultation and percussion bilaterally. Cardiac: Regular rate and rhythm. No murmur Abdomen: Soft, diffuse tenderness, nondistended, bowel sounds present all 4 quadrants, no guarding, no rigidity, no organomegaly. Extremities: No cyanosis, clubbing, no edema Neuro: Cranial nerves II through XII grossly intact, normal affect and speech, no focal motor deficits. Labs/Xrays ORDERING PHYSICIAN: ASHLYN PERALTA MD PROCEDURE(s): ABPL - CT AB PEL WO CON-NO ORAL OR IV REASON: pain ORDER NUMBER(s): [id number], ACCESSION NUMBER(s): [id number] CT abdomen and pelvis without contrast INDICATION: pain TECHNIQUE: Serial axial images were performed through the abdomen and pelvis and then reformatted in the sagittal and coronal plane. All CT scans at this medical facility are performed using dose modulation techniques as appropriate to a performed exam including the following: Automated exposure control was utilized; adjustment of the MA and/or KvP according to patient size; and use of iterative reconstruction technique. FINDINGS: Lung bases are clear. Liver and spleen are normal in size without focal mass. No renal masses, stones or hydronephrosis. No masses or enlargement of the adrenal glands or pancreas. No biliary dilatation. No gallstones. The small bowel is dilated down to the level of the pelvis where there is a transition point in the ileum. Colon is nondistended. Small colonic diverticuli are present. No signs of diverticulitis Appendix is normal in appearance. Urinary bladder is smooth walled without mass stone or hydronephrosis. No free fluid. Prostate gland normal in size. IMPRESSION: 1. Findings suggest possible small-bowel obstruction in the ileum etiology uncertain. No signs of appendicitis or active infection. Question of prior garcia rgery or adhesion Referring physician given a verbal report at 12:30 p.m. Computed Tomographic Radiation Dosimetry Report: Total CTDI vol = 5.5 mGy Total DLP = 277 mGy-cm Low dose protocols were performed. RING PHYSICIAN: ASHLYN PERALTA MD PROCEDURE(s): ABPL - CT AB PEL WO CON-NO ORAL OR IV REASON: pain ORDER NUMBER(s): [id number], ACCESSION NUMBER(s): [id number] CT abdomen and pelvis without contrast INDICATION: pain TECHNIQUE: Serial axial images were performed through the abdomen and pelvis and then reformatted in the sagittal and coronal plane. All CT scans at this medical facility are performed using dose modulation techniques as appropriate to a performed exam including the following: Automated exposure control was utilized; adjustment of the MA and/or KvP according to patient size; and use of iterative reconstruction technique. FINDINGS: Lung bases are clear. Liver and spleen are normal in size without focal mass. No renal masses, stones or hydronephrosis. No masses or enlargement of the adrenal glands or pancreas. No biliary dilatation. No gallstones. The small bowel is dilated down to the level of the pelvis where there is a transition point in the ileum. Colon is nondistended. Small colonic diverticuli are present. No signs of di verticulitis Appendix is normal in appearance. Urinary bladder is smooth walled without mass stone or hydronephrosis. No free fluid. Prostate gland normal in size. IMPRESSION: 1. Findings suggest possible small-bowel obstruction in the ileum etiology uncertain. No signs of appendicitis or active infection. Question of prior surgery or adhesion Referring physician given a verbal report at 12:30 p.m. Computed Tomographic Radiation Dosimetry Report: Total CTDI vol = 5.5 mGy Total DLP = 277 mGy-cm Low dose protocols were performed. ATED BY: ELODIA MELARA MD DICTATED DATE/TIME: 07/27/24 1239 Labs Test 07/27/24 15:45 07/27/24 12:48 Range/Units Urine Color Yellow Yellow Urine Clarity Clear Clear Urine pH 6.0 5.0-9.0 Urine Specific Echo 1.035 1.001-1.035 Urine Protein Trace H Negative Urine Ketones Trace Negative Urine Blood Negative Negative /uL Urine Nitrite Negative Negative Urine Bilirubin Negative Negative Urine Urobilinogen Normal Negative mg/dL Urine Leukocyte Esterase Negative Negative /uL Urine RBC 1 0 - 3 /hpf Urine Microscopic WBC 3 0-3 /HPF Urine Squamous Epithelial Cells Few <5 /hpf Urine Bacteria None seen None Seen /hpf Urine Glucose Normal Normal mg/dL Urine Opiates Screen Pos NEGATIVE Urine Fentanyl Screen Neg NEGATIVE Urine Barbiturates Screen Neg NEGATIVE Urine Phencyclidine Screen Neg NEGATIVE Urine Amphetamines Screen Pos NEGATIVE Urine Benzodiazepines Screen Neg NEGATIVE Urine Cocaine Screen Pos NEGATIVE Urine Cannabinoids Screen Neg NEGATIVE White Blood Count 15.5 H 4.4-10.8 10^3/uL Red Blood Count 5.62 4.5-5.90 10^6/uL Hemoglobin 18.1 H 13.5-17.5 g/dL Hematocrit 52.0 41.0-53.0 % Mean Corpuscular Volume 92.5 80.0-100.0 fL Mean Corpuscular Hemoglobin 32.2 H 28.0-32.0 pg Mean Corpuscular Hemoglobin Concent 34.8 32.0-36.0 g/dL Red Cell Distribution Width 12.9 11.8-14.3 % Platelet Count 344 140-450 10^3/uL Mean Platelet Volume 7.6 6.9-10.8 fL Neutrophils (%) (Auto) 89.1 H 37.0-80.0 % Lymphocytes (%) (Auto) 6.2 L 10.0-50.0 % Monocytes (%) (Auto) 4.1 0.0-12.0 % Eosinophils (%) (Auto) 0.4 0.0-7.0 % Basophils (%) (Auto) 0.2 0.0-2.0 % Neutrophils # (Auto) 13.8 H 1.6-8.6 10 ^3/uL Lymphocytes # (Auto) 1.0 0.4-5.4 10 ^3/uL Monocytes # (Auto) 0.6 0-1.3 10 ^3/uL Eosinophils # (Auto) 0.1 0-0.8 10 ^3/uL Basophils # (Auto) 0 0-0.2 10 ^3/uL Nucleated Red Blood Cells 0.4 % Sodium Level 137 136-145 mmol/L Potassium Level 4.4 3.5-5.1 mmol/L Chloride Level 101 98-107 mmol/L Carbon Dioxide Level 28 20-31 mmol/L Anion Gap 8 5-15 Blood Urea Nitrogen 13 9-23 mg/dL Creatinine 1.43 H 0.700-1.30 mg/dL Glomerular Filtration Rate Calc 62 >90 mL/min BUN/Creatinine Ratio 9.1 L 10.0-20.0 Serum Glucose 117 H 74-106 mg/dL Calcium Level 11.1 H 8.7-10.4 mg/dL Total Bilirubin 0.6 0.2-1.0 mg/dL Aspartate Amino Transferase (AST) 25 13-40 U/L Alanine Aminotransferase (ALT) 29 7-40 U/L Alkaline Phosphatase 81 46-116 U/L Total Protein 8.0 5.7-8.2 g/dL Albumin 5.4 H 3.2-4.8 g/dL Lipase 36 12-53 U/L Assessment/Plan Assessment/Plan Assessment Small-bowel obstruction Acute abdominal pain Leukocytosis Acute kidney injury Polysubstance abuse Admit the patient to [facility] to the hospitalist Surgical consultation NPO Maintenance IV fluids Pain management Small-bowel follow-through pending Continue treatment per orders Plan discussed with: Patient My Orders Orders - [facility] Procedure Category Date Status Time Admit ADMIT 07/27/24 Transmitted 18:27 * Surgical Consult CONS 07/27/24 Transmitted Small Bowel Series-W XY 07/27/24 Logged Gastrogra 18:38 Sodium Chloride 0.9% PHA 07/27/24 In Process 18:45 Basic Metabolic Panel LAB 07/28/24 Verified 04:00 Pantoprazole PHA 07/28/24 In Process (Protonix) 10:00 Ondansetron Hcl PHA 07/27/24 In Process (Zofran) 18:45 Complete Blood Count LAB 07/28/24 Verified 04:00 Npo (Nothing By DIET 07/28/24 Transmitted Mouth) Diet Breakfast Condition: Stable LEONARDO 07/27/24 In Process 18:38 Bedrest With Bathroom LEONARDO 07/27/24 In Process Privileg 18:38 Morphine Sulfate PHA 07/27/24 In Process Injection 18:45 Date of Service: Jul 27, 2024 Billing Provider: LETA ZHOU Common Visit Codes: [id number] INP/OBS CARE (HIGH) LETA ZHOU Jul 27, 2024 21:13
[2024-07-27] MEDS: SODIUM CHLORIDE 0.9% 1,000 ML IV ONE (22:58)
[2024-07-28] MEDS ORDERED: PANTOPRAZOLE 40 MG/10 ML VIAL INJ IV SCH (10:00)
== END 2024-07-27 23:01 | disposition left against medical advice (07) | DRG 247 ==
LOC: EDBD 11:58 → ER 11:58 → OVERFLOW 18:27
PROVIDERS: ADMIT Nurse Practitioner; ATTEND Nurse Practitioner
DX: K56.609 Unspecified intestinal obstruction, unspecified as to partial versus complete obstruction (principal); N17.9 Acute kidney failure, unspecified; D72.829 Elevated white blood cell count, unspecified; Z53.29 Procedure and treatment not carried out because of patient's decision for other reasons; I10 Essential (primary) hypertension; F17.210 Nicotine dependence, cigarettes, uncomplicated; Z79.2 Long term (current) use of antibiotics; Z79.52 Long term (current) use of systemic steroids; Z79.899 Other long term (current) drug therapy; F19.10 Other psychoactive substance abuse, uncomplicated
CPT/HCPCS: 36415; 74176; 80053; 80307; 81001; 83690; 85025; 96374; 96375; G0378; J2470